=== PATIENT | female | born 1995 | race American Indian/Alaskan Native ===

== ENCOUNTER 2018-04-14 23:09 | Emergency (ER) | payer SELFPAY ==
[2018-04-14 23:20] VITALS: BP 138/74
[2018-04-14] MEDS ORDERED: NACL 0.9% 1000 ML 1,000 ML IV ONE (23:22)
[2018-04-14 23:57] LABS: Basophils % (Auto) 0.5 % (0.0-1.8); Eosinophils # (Auto) 0.1 K/mm3 (0.0-0.4); Eosinophils % (Auto) 0.8 % (0.0-4.3); Hematocrit 39.3 % (30.3-42.9); Hemoglobin 13.4 gm/dl (10.1-14.3); Lymphocytes # (Auto) 3.3 K/mm3 (1.2-5.4); Lymphocytes % (Auto) 49.5 % (13.4-35.0); Mean Corpuscular HGB Conc 34 % (30-34); Mean Corpuscular Hemoglobin 31 pg (28-32); Mean Corpuscular Volume 90 fl (79-97); Monocytes # (Auto) 0.5 K/mm3 (0.0-0.8); Monocytes % (Auto) 7.7 % (0.0-7.3); Platelet Count 263 K/mm3 (140-440); Red Blood Count 4.36 M/mm3 (3.65-5.03); Red Cell Distribution Width 13.2 % (13.2-15.2)
[2018-04-15 00:11] LABS: Alanine Aminotransferase 5 units/L (7-56); Albumin 4.9 g/dL (3.9-5); BUN/Creatinine Ratio 15; Blood Urea Nitrogen 12 mg/dL (7-17); Calcium 9.8 mg/dL (8.4-10.2); Hemolysis Index 5
[2018-04-15 02:20] LABS: Bacteria,Urine 1+ /HPF (Negative); Bilirubin,Urine NEG (Negative); Blood,Urine NEG (Negative); Color,Urine Yellow (Yellow); Mucus,Urine FEW /HPF; Protein,Urine <15 mg/dL mg/dL (Negative)
== END 2018-04-15 01:50 | disposition left against medical advice (07) ==
LOC: ED 23:09
DX: R10.9 Unspecified abdominal pain (principal); Z53.21 Procedure and treatment not carried out due to patient leaving prior to being seen by health care provider
CPT/HCPCS: 36415; 80053; 81001; 85025

== ENCOUNTER 2019-12-16 10:29 | Inpatient (IN) | payer MEDICAID, OTHER ==
[2019-12-16] MEDS ORDERED: LACTATED RINGERS 500 ML IV ONE ×2 (11:32→21:00)
[2019-12-16] MEDS ORDERED: ACETAMINOPHEN 500 MG TAB PO ONE (11:33)
[2019-12-16 12:10] LABS: Bacteria,Urine 2+ /HPF (Negative); Bilirubin,Urine NEG (Negative); Blood,Urine NEG (Negative); Color,Urine Amber (Yellow); Mucus,Urine FEW /HPF
[2019-12-16 12:11] LABS: WBC,Urine > 182.0 /HPF (0.0-6.0)
--- NOTE | 2019-12-16 12:54 | XRay Report ---
CHEST 1 VIEW INDICATION: 28 wks, fever, body aches,. COMPARISON: None. FINDINGS: Support devices: None. Heart: Within normal limits. Lungs/Pleura: No acute air space or interstitial disease. Additional findings: None. IMPRESSION: No acute abnormality. Signer Name: Srinivas Hunter MD Signed: 12/16/2019 12:50 PM Workstation Name: [id number]
[2019-12-16 13:17] LABS: Hematocrit 28.8 % (30.3-42.9); Hemoglobin 9.7 gm/dl (10.1-14.3); Mean Corpuscular HGB Conc 34 % (30-34); Mean Corpuscular Volume 92 fl (79-97); Platelet Count 214 K/mm3 (140-440); Red Blood Count 3.14 M/mm3 (3.65-5.03); Red Cell Distribution Width 13.6 % (13.2-15.2)
[2019-12-16 14:08] LABS: C-Reactive Protein 7.1 mg/dL (0.00-1.30)
[2019-12-16 14:09] LABS: Albumin 3.6 g/dL (3.9-5); BUN/Creatinine Ratio 10; Blood Urea Nitrogen 4 mg/dL (7-17); Calcium 9.2 mg/dL (8.4-10.2); Hemolysis Index 4
[2019-12-16 14:10] LABS: Alanine Aminotransferase < 5 units/L (7-56)
[2019-12-16] MEDS ORDERED: LACTATED RINGERS 1,000 ML ONE (15:05)
[2019-12-16] MEDS ORDERED: DOCUSATE SODIUM 100 MG CAP PO PRN (16:17)
[2019-12-16] MEDS ORDERED: SIMETHICONE 80 MG CHEW TAB PO PRN (16:17)
[2019-12-16] MEDS ORDERED: SODIUM CHLORIDE NASAL SPRAY 44ML NS PRN (16:17)
[2019-12-16] MEDS ORDERED: MAGNESIUM HYDROXIDE (MOM) ORAL LIQD UDC PO PRN (16:17)
--- NOTE | 2019-12-16 16:17 | History and Physical Report ---
History of Present Illness Date of examination: 12/16/19 Date of admission: t Chief complaint: fever, back pain History of present illness: Pt is a 24 year old -Maldivian female primigravida JAZ 03/10/20 at 27w6d who presents with fever of 102 since earlier today, back pain and body aches. She denies cough, shortness of breath or chest pain. She does report lower abdominal cramping. She reports movement, and denies leakage of fluid or vaginal bleeding. She has had care at [facility] [employer] [facility] that has been complicated by UTI. Her GBS status is unknown. PUI?: No Past History Past Medical History: asthma Past Surgical History: breast surgery (cyst removal), other (knee surgery ) Family/Genetic History: none Social history: no significant social history - Obstetrical History Expected Date of Delivery: 03/10/20 Actual Gestation: 27 Week(s) 6 Day(s) : 1 Medications and Allergies Allergies Allergy/AdvReac Type Severity Reaction Status Date / Time acetaminophen [From Percocet] Allergy Intermediate Swelling Verified 04/14/18 23:21 oxycodone [From Percocet] Allergy Intermediate Swelling Verified 04/14/18 23:21 Review of Systems All systems: negative Constitutional: fever, no lethargy Cardiovascular: no chest pain Respiratory: no cough, no cough with sputum, no hemoptysis, no shortness of breath, no dyspnea on exertion Breasts: deferred Gastrointestinal: no nausea, no vomiting - Vital Signs Vital signs: Vital Signs Pulse BP 146 H 117/62 12/16/19 10:46 12/16/19 10:46 Temp Pulse Resp BP Pulse Ox 98.4 F 131 H 20 119/76 100 12/16/19 14:45 12/16/19 15:33 12/16/19 14:45 12/16/19 15:09 12/16/19 15:33 - Physical Exam Abdomen: Positive: soft (gravid ), other (Low back tenderness (center)) Uterus: Positive: enlarged (gravid) Extremities: Positive: normal - Obstetrical FHR: category 2 Uterine Contraction Monitor Mode: External Uterine Contraction Pattern: Irregular Uterine Tone Measurement Phase: Resting Uterine Contraction Intensity: Mild Results Result Diagrams: 12/16/19 13:00 12/16/19 13:00 Abnormal lab results 12/16/19 12/16/19 12/16/19 Range/Units 11:32 13:00 13:00 WBC 14.1 H (4.5-11.0) K/mm3 RBC 3.14 L (3.65-5.03) M/mm3 Hgb 9.7 L (10.1-14.3) gm/dl Hct 28.8 L (30.3-42.9) % D-Dimer (0-234) ng/mlDDU Sodium 133 L (137-145) mmol/L Carbon Dioxide 16 L (22-30) mmol/L BUN 4 L (7-17) mg/dL Creatinine 0.4 L (0.7-1.2) mg/dL Glucose 113 H (65-100) mg/dL ALT < 5 L (7-56) units/L C-Reactive Protein (0.00-1.30) mg/dL Albumin 3.6 L (3.9-5) g/dL Urine WBC (Auto) > 182.0 H (0.0-6.0) /HPF U Epithel Cells (Auto) 29.0 H (0-13.0) /HPF 12/16/19 12/16/19 Range/Units 13:00 13:00 WBC (4.5-11.0) K/mm3 RBC (3.65-5.03) M/mm3 Hgb (10.1-14.3) gm/dl Hct (30.3-42.9) % D-Dimer 881.69 H (0-234) ng/mlDDU Sodium (137-145) mmol/L Carbon Dioxide (22-30) mmol/L BUN (7-17) mg/dL Creatinine (0.7-1.2) mg/dL Glucose (65-100) mg/dL ALT (7-56) units/L C-Reactive Protein 7.10 H (0.00-1.30) mg/dL Albumin (3.9-5) g/dL Urine WBC (Auto) (0.0-6.0) /HPF U Epithel Cells (Auto) (0-13.0) /HPF All other labs normal. Assessment and Plan A: IUP at 27w6d Fever, Leukocytosis, and Urinalysis with nitrites, leukesterase, and WBCs consistent with pyelonephritis Asthma P: Admit to antepartum service IV Rocephin 2g IV daily Urine culture Closely monitor clinical status
[2019-12-16] MEDS: LACTATED RINGERS 1,000 ML IV SCH (17:21)
[2019-12-16] MEDS: cefTRIAXone/NS 2 GM/100 ML 2 GM/100 ML BAG IV SCH (17:22)
[2019-12-16] MEDS: ACETAMINOPHEN 325 MG TAB PO PRN ×2 (18:51→23:38)
[2019-12-16] MEDS: ONDANSETRON 4 MG/2 ML INJ IV PRN (18:57)
[2019-12-17] MEDS: ONDANSETRON 4 MG/2 ML INJ IV PRN (02:54)
[2019-12-17] MEDS: ACETAMINOPHEN 325 MG TAB PO PRN ×4 (03:40→23:10)
[2019-12-17] MEDS: LACTATED RINGERS 1,000 ML IV SCH ×2 (10:38→23:10)
[2019-12-17] MEDS: PRENATAL VIT27-FE FUMARATE-FOLIC ACID VIT TAB PO SCH (10:39)
--- NOTE | 2019-12-17 14:13 | Progress Note ---
Assessment and Plan A: IUP at 28w0d Fever, Leukocytosis, and Urinalysis with nitrites, leukesterase, and WBCs consistent with pyelonephritis; on Rocephin 2g IV daily Asthma P: Continue IV antibiotics Per pt request discharge this evening after next dose of antibiotics. Follow up at [facility] scheduled for next Thu12/21/19 Subjective - Subjective Date of service: 12/17/19 Principal diagnosis: IUP at 28 wks, Pyelonephritis Interval history: Pt feels well and is anxious to go home. She has not had any fever since admission. She has no back pain presently. Patient reports: movement normal, no new complaints, no loss of fluid, no vaginal bleeding, no contractions Objective - Vital Signs Vital Signs: Vital Signs - 12hr 12/17/19 12/17/19 12/17/19 02:41 02:42 06:24 Temperature 98.2 F Pulse Rate 136 H 133 H 109 H Respiratory Rate Blood Pressure 100/52 110/55 Blood Pressure [Left] O2 Sat by Pulse 100 99 Oximetry 12/17/19 12/17/19 12/17/19 06:35 08:18 08:20 Temperature 98.1 F 98.0 F Pulse Rate 112 H Respiratory 20 Rate Blood Pressure 101/57 Blood Pressure [Left] O2 Sat by Pulse 100 Oximetry 12/17/19 12/17/19 12:07 12:44 Temperature 98.3 F Pulse Rate 115 H 118 H Respiratory 20 Rate Blood Pressure 106/58 Blood Pressure 106/58 [Left] O2 Sat by Pulse 100 98 Oximetry - Exam Breasts: deferred Abdomen: Present: soft (gravid ) FHR: auscultation normal Uterine Contraction Monitor Mode: External Uterine Contraction Pattern: Irregular Uterine Tone Measurement Phase: Resting Extremities: normal - Labs Labs: Abnormal Labs 12/16/19 12/16/19 12/16/19 11:32 13:00 13:00 WBC 14.1 H RBC 3.14 L Hgb 9.7 L Hct 28.8 L D-Dimer Sodium 133 L Carbon Dioxide 16 L BUN 4 L Creatinine 0.4 L Glucose 113 H ALT < 5 L C-Reactive Protein Albumin 3.6 L Urine WBC (Auto) > 182.0 H U Epithel Cells (Auto) 29.0 H 12/16/19 12/16/19 13:00 13:00 WBC RBC Hgb Hct D-Dimer 881.69 H Sodium Carbon Dioxide BUN Creatinine Glucose ALT C-Reactive Protein 7.10 H Albumin Urine WBC (Auto) U Epithel Cells (Auto) Laboratory Results - last 24 hr 12/16/19 13:00 Influenza A (Rapid) Negative Influenza A (RT-PCR) Negative Influenza B (Rapid) Negative Influenza B (RT-PCR) Negative - Results US- obstetric: pending
[2019-12-17] MEDS: cefTRIAXone/NS 2 GM/100 ML 2 GM/100 ML BAG IV SCH (16:59)
--- NOTE | 2019-12-17 17:05 | Ultrasound Report ---
OB ultrasound for biophysical profile FINDINGS: breathing movement, spontaneous motion, tone and qualitative BOOGIE all score 2/2 for a total score of 8/8. BOOGIE is 15.8 cm with the fetus in vertex presentation and placenta anterior. heart rate is 138 bpm. No definite abnormality. Signer Name: Franko Ennis MD Signed: 12/17/2019 5:00 PM Workstation Name: [id number]
--- NOTE | 2019-12-17 18:53 | Event Note ---
Date: 12/17/19 Called by RN secondary to patient temperature 102. Patient feels ill, and began having chills. Blood cultures x [address] Harris from Infectious Disease consulted, given clinical scenario. He has recommended that the patient be made a PUI. Precautions instituted. COVID 19 test ordered. Per lab, it is a send out test to [facility] that is usually resulted in 24 hours. Continue to monitor clinical status.
[2019-12-17] MEDS ORDERED: LEVALBUTEROL 0.63 MG/3 ML NEBU IH ONE (19:23)
[2019-12-17 20:26] LABS: Basophils % (Auto) 0.1 % (0.0-1.8); Hematocrit 25.7 % (30.3-42.9); Hemoglobin 8.7 gm/dl (10.1-14.3); Lymphocytes # (Auto) 1.1 K/mm3 (1.2-5.4); Lymphocytes % (Auto) 5.8 % (13.4-35.0); Mean Corpuscular HGB Conc 34 % (30-34); Mean Corpuscular Volume 92 fl (79-97); Monocytes # (Auto) 1.7 K/mm3 (0.0-0.8); Monocytes % (Auto) 9.3 % (0.0-7.3); Platelet Count 188 K/mm3 (140-440); Red Blood Count 2.81 M/mm3 (3.65-5.03); Red Cell Distribution Width 13.6 % (13.2-15.2)
--- NOTE | 2019-12-17 20:47 | XRay Report ---
CHEST 1 VIEW INDICATION / CLINICAL INFORMATION: New decrease in oxygen saturaton, UTI, fever. COMPARISON: 12/16/2019 FINDINGS: SUPPORT DEVICES: None. HEART / MEDIASTINUM: No significant abnormality. LUNGS / PLEURA: There is developing bilateral lung consolidation in the mid and lower lung zones not seen previously. The upper lungs are clear. No edema or effusions. No pneumothorax. ADDITIONAL FINDINGS: No significant additional findings. IMPRESSION: 1 Developing basilar pneumonia. Signer Name: Franko Ennis MD Signed: 12/17/2019 8:42 PM Workstation Name: [id number]
[2019-12-18] MEDS: LACTATED RINGERS 1,000 ML IV SCH (06:26)
[2019-12-18] MEDS: PRENATAL VIT27-FE FUMARATE-FOLIC ACID VIT TAB PO SCH (11:00)
--- NOTE | 2019-12-18 11:22 | Progress Note ---
Assessment and Plan A: IUP at 28w1d Fever, Leukocytosis, and Urinalysis with nitrites, leukesterase, and WBCs consistent with pyelonephritis; on Rocephin 2g IV daily PUI for Covid 19 after sudden onset of desaturation, chest pain and change in mental status on 12/17/19; test results pending. Results anticipated on 12/19/19 evening New finding of evolving bilateral pneumonia Asthma P: Continue IV antibiotics Begin Azithromycin for presumed pneumonia Follow up urine culture for sensitivities Subjective - Subjective Date of service: 12/18/19 Principal diagnosis: IUP at 28 wks, Suspected Pyelonephritis, PUI for Covid 19 Interval history: Overnight, pt felt well and denies fever or chills. She reports good movement. Covid-19 test swab collected and is pending. Blood cultures x 2 and urine cultures pending. Urine culture growing gram negative rods. Pt c.o painful contractions this morning. Patient reports: new complaints (per HPI ), movement normal, no loss of fluid, no vaginal bleeding Objective - Vital Signs Vital Signs: Vital Signs - 12hr 12/17/19 12/17/19 12/17/19 23:17 23:22 23:27 Temperature Pulse Rate 132 H 135 H 132 H Respiratory Rate Blood Pressure O2 Sat by Pulse 100 100 100 Oximetry 12/17/19 12/17/19 12/17/19 23:29 23:32 23:36 Temperature Pulse Rate 138 H 135 H 133 H Respiratory Rate Blood Pressure O2 Sat by Pulse 87 98 89 Oximetry 12/17/19 12/17/19 12/17/19 23:37 23:42 23:47 Temperature Pulse Rate 138 H 133 H 137 H Respiratory Rate Blood Pressure O2 Sat by Pulse 98 99 100 Oximetry 12/17/19 12/17/19 12/18/19 23:52 23:57 00:02 Temperature Pulse Rate 132 H 132 H 128 H Respiratory Rate Blood Pressure O2 Sat by Pulse 94 97 96 Oximetry 12/18/19 12/18/19 12/18/19 00:17 01:26 01:31 Temperature 98.6 F Pulse Rate 133 H 122 H 121 H Respiratory 18 Rate Blood Pressure 119/58 O2 Sat by Pulse 98 98 Oximetry 12/18/19 12/18/19 12/18/19 01:36 01:41 01:46 Temperature Pulse Rate 117 H 128 H 114 H Respiratory Rate Blood Pressure O2 Sat by Pulse 99 96 97 Oximetry 12/18/19 12/18/19 12/18/19 01:51 01:56 02:01 Temperature Pulse Rate 112 H 117 H 119 H Respiratory Rate Blood Pressure O2 Sat by Pulse 97 98 98 Oximetry 12/18/19 12/18/19 12/18/19 02:06 02:11 02:16 Temperature Pulse Rate 110 H 111 H 108 H Respiratory Rate Blood Pressure O2 Sat by Pulse 97 99 97 Oximetry 12/18/19 12/18/19 12/18/19 02:21 02:26 02:31 Temperature Pulse Rate 109 H 107 H 115 H Respiratory Rate Blood Pressure O2 Sat by Pulse 97 97 97 Oximetry 12/18/19 12/18/19 12/18/19 02:36 02:41 02:46 Temperature Pulse Rate 110 H 107 H 106 H Respiratory Rate Blood Pressure O2 Sat by Pulse 96 96 95 Oximetry 12/18/19 12/18/19 12/18/19 02:51 02:56 03:01 Temperature Pulse Rate 106 H 105 H 102 H Respiratory Rate Blood Pressure O2 Sat by Pulse 96 96 96 Oximetry 12/18/19 12/18/19 12/18/19 03:06 03:11 03:16 Temperature Pulse Rate 103 H 104 H 104 H Respiratory Rate Blood Pressure O2 Sat by Pulse 96 96 96 Oximetry 12/18/19 12/18/19 12/18/19 03:21 03:26 03:31 Temperature Pulse Rate 104 H 102 H 107 H Respiratory Rate Blood Pressure O2 Sat by Pulse 96 96 95 Oximetry 12/18/19 12/18/19 12/18/19 03:36 03:41 03:46 Temperature Pulse Rate 103 H 106 H 108 H Respiratory Rate Blood Pressure O2 Sat by Pulse 96 96 96 Oximetry 12/18/19 12/18/19 12/18/19 03:51 03:56 04:00 Temperature 97.4 F L Pulse Rate 105 H 106 H Respiratory 18 Rate Blood Pressure O2 Sat by Pulse 95 95 Oximetry 12/18/19 12/18/19 12/18/19 04:01 04:02 04:06 Temperature Pulse Rate 109 H 109 H 104 H Respiratory Rate Blood Pressure O2 Sat by Pulse 95 94 95 Oximetry 12/18/19 12/18/19 12/18/19 04:08 04:11 04:14 Temperature Pulse Rate 115 H 108 H 109 H Respiratory Rate Blood Pressure O2 Sat by Pulse 92 95 93 Oximetry 12/18/19 12/18/19 12/18/19 04:16 04:19 04:21 Temperature Pulse Rate 118 H 115 H 111 H Respiratory Rate Blood Pressure O2 Sat by Pulse 100 94 96 Oximetry 12/18/19 12/18/19 12/18/19 04:34 04:38 04:39 Temperature Pulse Rate 113 H 112 H 111 H Respiratory Rate Blood Pressure 118/63 O2 Sat by Pulse 94 98 Oximetry 12/18/19 12/18/19 12/18/19 04:44 04:52 04:53 Temperature Pulse Rate 111 H 120 H 117 H Respiratory Rate Blood Pressure O2 Sat by Pulse 97 78 L 85 Oximetry 12/18/19 12/18/19 12/18/19 04:58 04:59 05:03 Temperature Pulse Rate 111 H 111 H 107 H Respiratory Rate Blood Pressure O2 Sat by Pulse 99 90 99 Oximetry 12/18/19 12/18/19 12/18/19 05:07 05:08 05:13 Temperature Pulse Rate 112 H 111 H 116 H Respiratory Rate Blood Pressure O2 Sat by Pulse 91 98 100 Oximetry 12/18/19 12/18/19 12/18/19 05:18 05:23 05:27 Temperature Pulse Rate 114 H 112 H 118 H Respiratory Rate Blood Pressure O2 Sat by Pulse 98 98 91 Oximetry 12/18/19 12/18/19 12/18/19 05:28 05:33 05:38 Temperature Pulse Rate 116 H 119 H 116 H Respiratory Rate Blood Pressure O2 Sat by Pulse 98 99 98 Oximetry 12/18/19 12/18/19 12/18/19 05:43 05:47 05:48 Temperature Pulse Rate 119 H 112 H 112 H Respiratory Rate Blood Pressure O2 Sat by Pulse 97 86 86 Oximetry 12/18/19 12/18/19 12/18/19 05:53 05:58 06:03 Temperature Pulse Rate 115 H 117 H 113 H Respiratory Rate Blood Pressure O2 Sat by Pulse 98 97 96 Oximetry 12/18/19 12/18/19 12/18/19 06:04 06:08 06:13 Temperature Pulse Rate 124 H 113 H 111 H Respiratory Rate Blood Pressure O2 Sat by Pulse 91 97 98 Oximetry 12/18/19 12/18/19 12/18/19 06:14 06:18 07:10 Temperature Pulse Rate 123 H 116 H 127 H Respiratory Rate Blood Pressure O2 Sat by Pulse 88 100 97 Oximetry 12/18/19 12/18/19 12/18/19 07:14 07:15 07:19 Temperature Pulse Rate 121 H 121 H 122 H Respiratory Rate Blood Pressure O2 Sat by Pulse 89 100 87 Oximetry 12/18/19 12/18/19 12/18/19 07:20 07:25 07:30 Temperature Pulse Rate 124 H 125 H 121 H Respiratory Rate Blood Pressure O2 Sat by Pulse 84 94 98 Oximetry 12/18/19 12/18/19 12/18/19 07:34 07:35 07:40 Temperature Pulse Rate 124 H 122 H 120 H Respiratory Rate Blood Pressure O2 Sat by Pulse 92 89 98 Oximetry 12/18/19 12/18/19 12/18/19 07:45 07:50 07:55 Temperature Pulse Rate 123 H 129 H 122 H Respiratory Rate Blood Pressure O2 Sat by Pulse 96 94 99 Oximetry 12/18/19 12/18/19 12/18/19 08:00 08:02 08:05 Temperature Pulse Rate 125 H 125 H 128 H Respiratory Rate Blood Pressure O2 Sat by Pulse 99 88 97 Oximetry 12/18/19 12/18/19 12/18/19 08:10 08:14 08:15 Temperature 98.4 F Pulse Rate 131 H 125 H Respiratory 20 Rate Blood Pressure O2 Sat by Pulse 92 97 Oximetry 12/18/19 12/18/19 12/18/19 08:18 08:20 08:25 Temperature Pulse Rate 126 H 129 H 129 H Respiratory Rate Blood Pressure O2 Sat by Pulse 85 96 99 Oximetry 12/18/19 12/18/19 12/18/19 08:30 08:35 08:40 Temperature Pulse Rate 126 H 130 H 130 H Respiratory Rate Blood Pressure O2 Sat by Pulse 99 90 83 L Oximetry 12/18/19 12/18/19 12/18/19 08:43 08:45 08:50 Temperature Pulse Rate 129 H 130 H 132 H Respiratory Rate Blood Pressure O2 Sat by Pulse 85 100 91 Oximetry 12/18/19 12/18/19 12/18/19 08:55 08:56 10:06 Temperature 98.6 F Pulse Rate 130 H 132 H Respiratory 18 Rate Blood Pressure O2 Sat by Pulse 95 94 Oximetry 12/18/19 12/18/19 12/18/19 10:32 10:34 10:35 Temperature 98.6 F Pulse Rate 129 H Respiratory Rate Blood Pressure O2 Sat by Pulse 83 L 94 Oximetry 12/18/19 12/18/19 12/18/19 10:40 10:45 10:48 Temperature Pulse Rate 135 H 138 H 129 H Respiratory Rate Blood Pressure O2 Sat by Pulse 86 99 93 Oximetry 12/18/19 12/18/19 12/18/19 10:50 10:54 10:55 Temperature Pulse Rate 131 H 132 H 133 H Respiratory Rate Blood Pressure O2 Sat by Pulse 100 93 95 Oximetry 12/18/19 12/18/19 11:00 11:03 Temperature Pulse Rate 131 H 128 H Respiratory Rate Blood Pressure O2 Sat by Pulse 100 91 Oximetry - Exam Breasts: deferred Lungs: Clear to auscultation, Other (decreased air movement ) Abdomen: Present: soft (obese ) Uterus: Present: normal (obese ) FHR: auscultation normal Uterine Contraction Monitor Mode: External Cervical Dilatation: 0 Uterine Contraction Pattern: Irregular Uterine Tone Measurement Phase: Resting - Labs Labs: Abnormal Labs 12/16/19 12/16/19 12/16/19 11:32 13:00 13:00 WBC 14.1 H RBC 3.14 L Hgb 9.7 L Hct 28.8 L Lymph % (Auto) [place] % (Auto) Lymph # [place] # Seg Neutrophils % Seg Neutrophils # D-Dimer Sodium 133 L Carbon Dioxide 16 L BUN 4 L Creatinine 0.4 L Glucose 113 H ALT < 5 L C-Reactive Protein Albumin 3.6 L Urine WBC (Auto) > 182.0 H U Epithel Cells (Auto) 29.0 H 12/16/19 12/16/19 12/17/19 13:00 13:00 20:12 WBC 18.5 H RBC 2.81 L Hgb 8.7 L Hct 25.7 L Lymph % (Auto) 5.8 L [place] % (Auto) 9.3 H Lymph # 1.1 L [place] # 1.7 H Seg Neutrophils % 84.8 H Seg Neutrophils # 15.7 H D-Dimer 881.69 H Sodium Carbon Dioxide BUN Creatinine Glucose ALT C-Reactive Protein 7.10 H Albumin Urine WBC (Auto) U Epithel Cells (Auto) Laboratory Results - last 24 hr 12/17/19 12/17/19 17:08 20:12 WBC 18.5 H RBC 2.81 L Hgb 8.7 L Hct 25.7 L MCV 92 MCH 31 MCHC 34 RDW 13.6 Plt Count 188 Lymph % (Auto) 5.8 L [place] % (Auto) 9.3 H Eos % (Auto) 0.0 Baso % (Auto) 0.1 Lymph # 1.1 L [place] # 1.7 H Eos # 0.0 Baso # 0.0 Seg Neutrophils % 84.8 H Seg Neutrophils # 15.7 H TSH 1.160
--- NOTE | 2019-12-18 14:55 | Consultation ---
History of Present Illness - Reason for Consult Consult date: 12/18/19 COVID-19 PUI?: Yes COVID19: Pending - History of Present Illness sad 24 yo F PMHx asthma who presented with fevers, back pain, and body aches. There was associated abdominal cramping as well. She has previously had a UTI during her current , and her GBS status was unknown on admission. He symptoms were initially attributed to a potential pyelonephritis as she lacked any respiratory symptoms. However, during her admission she became somewhat hypoxic, and as such she was made into a PUI after a discussion between myself and Dr. Mason. No other concerns at this time. Febrile to 102.7 with a white count of now of 18. She is currently receiving ceftriaxone and azithromycin. Urine cultures with E coli, palm-sensitive. Imaging personally reviewed: CXR: developing basilar pneumonia. Review of Systems: Bold if positive, otherwise negative General: fevers, chills, rigors HEENT: visual disturbance, diplopia, eye pain Respiratory: cough, sputum, hemoptysis, shortness of breath Cardiovascular: chest pain, syncope Gastrointestinal: nausea, vomiting, diarrhea, abdominal pain Genitourinary: dysuria, hematuria, flank pain Musculoskeletal: neck pain, back pain, joint pain, edema Neurologic: headaches, seizures Hematologic: easy bruising or bleeding Endocrine: night sweats, acute weight loss Skin: rash, jaundice, redness Psychiatric: suicidal, homicidal ideation Past History Past Medical History: No medical history Past Surgical History: No surgical history Social history: no significant social history Family history: no significant family history Medications and Allergies Allergies Allergy/AdvReac Type Severity Reaction Status Date / Time acetaminophen [From Percocet] Allergy Intermediate Swelling Verified 04/14/18 23:21 oxycodone [From Percocet] Allergy Intermediate Swelling Verified 04/14/18 23:21 Home Medications Medication Instructions Recorded Confirmed Last Taken Type No Known Home Medications [No 12/18/19 12/18/19 Unknown History Reported Home Medications] Formula-Dha Softgel 1 tab PO DAILY 12/18/19 12/18/19 12/17/19 History Active Meds: Active Medications Acetaminophen (Tylenol) 650 mg PO Q4H PRN PRN Reason: Pain MILD(1-3)/Fever >100.5/BRADEN Last Admin: 12/17/19 23:10 Dose: 650 mg Documented by: Docusate Sodium (Colace) 100 mg PO Q12H PRN PRN Reason: Constipation Lactated Ringer's (Lactated Ringers) 1,000 mls @ 125 mls/hr IV DIRECT ANGIE Last Admin: 12/18/19 06:26 Dose: 125 mls/hr Documented by: Ceftriaxone Sodium (Rocephin/Ns 2 Gm/100 Ml) 2 gm in 100 mls @ 200 mls/hr IV Q24HR ANGIE; Protocol Last Admin: 12/17/19 16:59 Dose: 200 mls/hr Documented by: Azithromycin 500 mg/ Sodium (Chloride) 250 mls @ 250 mls/hr IV Q24HR ANGIE; Jimenez col Magnesium Hydroxide (Milk Of Magnesia) 30 ml PO QHS PRN PRN Reason: Laxative Effect Last Admin: 12/17/19 02:54 Dose: 30 ml Documented by: Multivitamins/Iron/Calcium ( Vitamin) 1 each PO QDAY ANGIE Last Admin: 12/17/19 10:39 Dose: 1 each Documented by: Ondansetron HCl (Zofran) 4 mg IV Q6H PRN PRN Reason: Nausea And Vomiting Last Admin: 12/17/19 02:54 Dose: 4 mg Documented by: Simethicone (Mylicon) 80 mg PO Q6H PRN PRN Reason: Gas pain Last Admin: 12/17/19 02:54 Dose: 80 mg Documented by: Sodium Chloride (Deep Sea) 2 spray NS Q4H PRN PRN Reason: Congestion Physical Examination - Physical Exam Narrative exam: Physical Exam: Deferred due to PPE conservation strategy Please see TRAVELING REPAIR ACCOUNT[employer] note for updated exam. - Constitutional Vitals: Vital Signs Temp Pulse Resp BP Pulse Ox 98.6 F 116 H 18 118/63 97 12/18/19 10:32 12/18/19 14:51 12/18/19 10:06 12/18/19 04:34 12/18/19 14:51 Temperature -Last 24 Hours Temperature 98.6 F Temperature 98.6 F Temperature 98.4 F Temperature 97.4 F Temperature 98.6 F Temperature 100.0 F Temperature 102.5 F Temperature 102.7 F Temperature 98.2 F Results - Labs CBC & Chem 7: 12/17/19 20:12 12/16/19 13:00 Labs: Abnormal lab results 04/11/20 Range/Units 20:12 WBC 18.5 H (4.5-11.0) K/mm3 RBC 2.81 L (3.65-5.03) M/mm3 Hgb 8.7 L (10.1-14.3) gm/dl Hct 25.7 L (30.3-42.9) % Lymph % (Auto) 5.8 L (13.4-35.0) % [place] % (Auto) 9.3 H (0.0-7.3) % Lymph # 1.1 L (1.2-5.4) K/mm3 [place] # 1.7 H (0.0-0.8) K/mm3 Seg Neutrophils % 84.8 H (40.0-70.0) % Seg Neutrophils # 15.7 H (1.8-7.7) K/mm3 Assessment and Plan Cultures: Blood culture 12/17/2019 pending Urine culture12/16/2019 E coli palm sensitive A/P: 24 yo F PMHx asthma admitted with concern for pyelonephritis, n ow concern for COVID-19 #Probably pyelonephritis: given symptoms including flank pain and positive urine culture for E coli, recommend continuing treatment with ceftriaxone for now given developing pneumonia. #Pneumonia: continue empiric antibiotics for now pending COVID-19 test #COVID-19 rule out: pending test, given persistent fevers, and now tachycardia and hypoxia agree with testing. Continue isolation precautions for now. #Asthma: high risk for COVID complications if positive Recs: -Continue empiric azithromycin and ceftriaxone -Follow up blood cultures -Follow up COVID-testing Discussed with Dr. Mason. Thank you for the consult, we will continue to follow. John Harris MD [facility] M: [phone] O: [phone] F: [phone]
[2019-12-18] MEDS ORDERED: AZITHROMYCIN 500 MG in SODIUM CHLORIDE 0.9% 250ML 250 ML IV SCH (15:00)
[2019-12-18] MEDS ORDERED: AZITHROMYCIN 250 MG TAB PO SCH (15:00)
[2019-12-18] MEDS: AZITHROMYCIN 250 MG TAB PO SCH (17:46)
[2019-12-18] MEDS: ACETAMINOPHEN 325 MG TAB PO PRN (19:29)
[2019-12-19] MEDS: ACETAMINOPHEN 325 MG TAB PO PRN (02:04)
--- NOTE | 2019-12-19 07:48 | Progress Note ---
Assessment and Plan A: IUP at 28w2d Fever, Leukocytosis, and Urinalysis with nitrites, leukesterase, and WBCs consistent with pyelonephritis; on Rocephin 2g IV daily PUI for Covid 19 after sudden onset of desaturation, chest pain and change in mental status on 12/17/19; test results pending. Results anticipated on 12/19/19 evening New finding of evolving bilateral pneumonia Asthma P: Continue IV antibiotics Begin Azithromycin for presumed pneumonia Follow up urine culture for sensitivities Await results from covid Subjective - Subjective Date of service: 12/19/19 Principal diagnosis: IUP at 28 wks, Suspected Pyelonephritis, PUI for Covid 19 Patient reports: new complaints (per HPI ), movement normal, no loss of fluid, no vaginal bleeding Objective - Vital Signs Vital Signs: Vital Signs - 12hr 12/18/19 12/18/19 12/18/19 19:50 19:55 20:00 Temperature Pulse Rate 127 H 131 H 127 H Pulse Rate [ Bilateral] Respiratory Rate Respiratory Rate [Bilateral ] Blood Pressure Blood Pressure [Left] O2 Sat by Pulse 99 99 98 Oximetry 12/18/19 12/18/19 12/18/19 20:02 20:05 20:10 Temperature Pulse Rate 127 H 129 H 131 H Pulse Rate [ Bilateral] Respiratory Rate Respiratory Rate [Bilateral ] Blood Pressure 133/66 Blood Pressure [Left] O2 Sat by Pulse 98 98 Oximetry 12/18/19 12/18/19 12/18/19 20:15 20:42 20:43 Temperature Pulse Rate 39 L 132 H Pulse Rate [ Bilateral] Respiratory Rate Respiratory Rate [Bilateral ] Blood Pressure Blood Pressure [Left] O2 Sat by Pulse 64 L 93 98 Oximetry 12/18/19 12/18/19 12/18/19 20:48 20:53 20:58 Temperature Pulse Rate 123 H 121 H 120 H Pulse Rate [ Bilateral] Respiratory Rate Respiratory Rate [Bilateral ] Blood Pressure Blood Pressure [Left] O2 Sat by Pulse 98 98 98 Oximetry 12/18/19 12/18/19 12/18/19 21:03 21:08 21:13 Temperature Pulse Rate 120 H 127 H 121 H Pulse Rate [ Bilateral] Respiratory Rate Respiratory Rate [Bilateral ] Blood Pressure Blood Pressure [Left] O2 Sat by Pulse 98 97 97 Oximetry 12/18/19 12/18/19 12/18/19 21:15 21:18 21:21 Temperature Pulse Rate 120 H 56 L Pulse Rate [ 85 Bilateral] Respiratory Rate Respiratory 18 Rate [Bilateral ] Blood Pressure Blood Pressure [Left] O2 Sat by Pulse 97 77 L Oximetry 12/18/19 12/18/19 12/18/19 21:23 21:28 21:33 Temperature Pulse Rate 126 H 119 H 118 H Pulse Rate [ Bilateral] Respiratory Rate Respiratory Rate [Bilateral ] Blood Pressure Blood Pressure [Left] O2 Sat by Pulse 96 99 100 Oximetry 12/18/19 12/18/19 12/18/19 21:38 21:43 21:48 Temperature Pulse Rate 115 H 116 H 114 H Pulse Rate [ Bilateral] Respiratory Rate Respiratory Rate [Bilateral ] Blood Pressure Blood Pressure [Left] O2 Sat by Pulse 99 97 100 Oximetry 12/18/19 12/18/19 12/18/19 21:53 21:54 21:58 Temperature Pulse Rate 119 H 122 H 116 H Pulse Rate [ Bilateral] Respiratory Rate Respiratory Rate [Bilateral ] Blood Pressure Blood Pressure [Left] O2 Sat by Pulse 98 93 95 Oximetry 12/18/19 12/19/19 12/19/19 22:42 00:09 00:10 Temperature Pulse Rate 115 H 62 130 H Pulse Rate [ Bilateral] Respiratory Rate Respiratory Rate [Bilateral ] Blood Pressure 110/58 Blood Pressure [Left] O2 Sat by Pulse 99 70 L Oximetry 12/19/19 12/19/19 12/19/19 00:11 00:12 00:14 Temperature Pulse Rate 126 H 126 H 102 H Pulse Rate [ Bilateral] Respiratory 24 Rate Respiratory Rate [Bilateral ] Blood Pressure Blood Pressure 110/58 [Left] O2 Sat by Pulse 100 99 83 L Oximetry 12/19/19 12/19/19 12/19/19 01:56 01:57 02:01 Temperature 98.0 F Pulse Rate 123 H Pulse Rate [ Bilateral] Respiratory Rate Respiratory Rate [Bilateral ] Blood Pressure Blood Pressure [Left] O2 Sat by Pulse 75 L 97 97 Oximetry 12/19/19 12/19/19 12/19/19 02:02 04:01 07:41 Temperature 97.8 F Pulse Rate 114 H Pulse Rate [ Bilateral] Respiratory Rate Respiratory Rate [Bilateral ] Blood Pressure Blood Pressure [Left] O2 Sat by Pulse 97 54 L Oximetry 12/19/19 12/19/19 07:42 07:44 Temperature Pulse Rate 116 H 115 H Pulse Rate [ Bilateral] Respiratory Rate Respiratory Rate [Bilateral ] Blood Pressure 112/66 Blood Pressure [Left] O2 Sat by Pulse 82 L Oximetry - Exam Breasts: normal Cardiovascular: Regular rate, Normal S1 Lungs: Clear to auscultation, Normal air movement Abdomen: Present: normal appearance, soft, normal bowel sounds. Absent: distention, tenderness, guarding Vulva: both: normal Uterus: Present: normal, firm, fundal height below umbilicus. Absent: bogginess, tenderness FHR: category 1 - Labs Labs: Abnormal Labs 12/16/19 12/16/19 12/16/19 11:32 13:00 13:00 WBC 14.1 H RBC 3.14 L Hgb 9.7 L Hct 28.8 L Lymph % (Auto) [place] % (Auto) Lymph # [place] # Seg Neutrophils % Seg Neutrophils # D-Dimer Sodium 133 L Carbon Dioxide 16 L BUN 4 L Creatinine 0.4 L Glucose 113 H ALT < 5 L C-Reactive Protein Albumin 3.6 L Urine WBC (Auto) > 182.0 H U Epithel Cells (Auto) 29.0 H 12/16/19 12/16/19 12/17/19 13:00 13:00 20:12 WBC 18.5 H RBC 2.81 L Hgb 8.7 L Hct 25.7 L Lymph % (Auto) 5.8 L [place] % (Auto) 9.3 H Lymph # 1.1 L [place] # 1.7 H Seg Neutrophils % 84.8 H Seg Neutrophils # 15.7 H D-Dimer 881.69 H Sodium Carbon Dioxide BUN Creatinine Glucose ALT C-Reactive Protein 7.10 H Albumin Urine WBC (Auto) U Epithel Cells (Auto)
[2019-12-19] MEDS: cefTRIAXone/NS 2 GM/100 ML 2 GM/100 ML BAG IV SCH (09:46)
[2019-12-19] MEDS: PRENATAL VIT27-FE FUMARATE-FOLIC ACID VIT TAB PO SCH (09:47)
[2019-12-19] MEDS: AZITHROMYCIN 250 MG TAB PO SCH (09:47)
--- NOTE | 2019-12-19 13:48 | Progress Note ---
Assessment and Plan Cultures: Blood culture 12/17/2019 No growth Urine culture 12/16/2019 E coli palm sensitive A/P: 24 yo F PMHx asthma admitted with concern for pyelonephritis, now concern for COVID-19: #Probably pyelonephritis: given symptoms including flank pain and positive urine culture for E coli, recommend continuing treatment with ceftriaxone for now given developing pneumonia. #Pneumonia: continue empiric antibiotics for now pending COVID-19 test. #COVID-19 rule out: pending test, given persistent fevers, and now tachycardia and hypoxia agree with testing. Continue isolation precautions for now. #Asthma: high risk for COVID complications if positive # status: 28 weeks. Recs: -Continue empiric azithromycin and ceftriaxone -Follow up COVID testing Phill Espitia MD, FACP [facility] ([facility]) C: [phone] O: [phone] F: [phone] Subjective Date of service: 12/19/19 Principal diagnosis: IUP at 28 wks, Suspected Pyelonephritis, PUI for Covid 19 Interval history: No fever. Still tachycardic. COVID test pending. Influenza negative. Urine culture with E.coli. PUI?: Yes COVID19: Pending Objective - Exam Narrative Exam: Physical Exam (reviewed in chart due to PPE conservation) Constitutional: limited due to PPE conservation strategy Head, Ears, Nose: limited due to PPE conservation strategy Eyes: limited due to PPE conservation strategy Neck: limited due to PPE conservation strategy Oral: limited due to PPE conservation strategy Cardiovascular: limited due to PPE conservation strategy Respiratory: limited due to PPE conservation strategy GI: limited due to PPE conservation strategy Musculoskeletal: limited due to PPE conservation strategy Skin: limited due to PPE conservation strategy Hem/Lymphatic: limited due to PPE conservation strategy Psych: limited due to PPE conservation strategy Neurological: limited due to PPE conservation strategy - Constitutional Vitals: Vital Signs Temp Pulse Resp BP Pulse Ox 98.5 F 114 H 20 120/62 99 12/19/19 13:12 12/19/19 13:46 12/19/19 13:12 12/19/19 13:07 12/19/19 13:46 Temperature -Last 24 Hours Temperature 98.5 F Temperature 98.4 F Temperature 98.2 F Temperature 98.3 F Temperature 97.8 F Temperature 98.0 F Temperature 99.2 F Temperature 98.9 F - Labs CBC & Chem 7: 12/17/19 20:12 12/16/19 13:00
--- NOTE | 2019-12-19 15:41 | Event Note ---
Date: 12/19/19 Got notification from lab that COVID-19 test is negative.
[2019-12-20 06:14] LABS: Hematocrit 25.3 % (30.3-42.9); Hemoglobin 8.6 gm/dl (10.1-14.3); Mean Corpuscular HGB Conc 34 % (30-34); Mean Corpuscular Volume 92 fl (79-97); Platelet Count 262 K/mm3 (140-440); Red Blood Count 2.76 M/mm3 (3.65-5.03); Red Cell Distribution Width 13.9 % (13.2-15.2)
[2019-12-20 07:11] LABS: Total Cells Counted 100
[2019-12-20 07:13] LABS: Band Neutrophils # (Manual) 0.2 K/mm3; Basophils % (Manual) 0 % (0.0-1.8); Eosinophils % (Manual) 0 % (0.0-4.3)
[2019-12-20 07:14] LABS: Ovalocytes Rare; Platelet Estimate Consistent w Auto
[2019-12-20] MEDS: PRENATAL VIT27-FE FUMARATE-FOLIC ACID VIT TAB PO SCH ×2 (08:29→11:24)
[2019-12-20] MEDS: ACETAMINOPHEN 325 MG TAB PO PRN (08:30)
[2019-12-20] MEDS: AZITHROMYCIN 250 MG TAB PO SCH (10:33)
[2019-12-20] MEDS: cefTRIAXone/NS 2 GM/100 ML 2 GM/100 ML BAG IV SCH (11:23)
--- NOTE | 2019-12-20 13:20 | Progress Note ---
Assessment and Plan Cultures: Blood culture 12/17/2019 No growth Urine culture 12/16/2019 E coli palm sensitive A/P: 24 yo F PMHx asthma admitted with concern for pyelonephritis, now concern for COVID-19: #Probably pyelonephritis: given symptoms including flank pain and positive urine culture for E coli, recommend continuing treatment with ceftriaxone for now given developing pneumonia. #Pneumonia: already received a few days of Ceftriaxone and Azithromycin. #COVID-19 ruled out: test result negative #Asthma: high risk for COVID complications if positive # status: 28 weeks. Recs: -WBC normal, afebrile, not on oxygen. COVID test negative -already received adequate days of IV Ceftriaxone and Azithromycin -OK for discharge from ID standpoint on PO Keflex 500 mg BID till the rest of her as secondary prophylaxis for UTI/pyelonephritis Will sign off. Please call with questions. Phill Espitia MD, FACP [facility] ([facility]) C: [phone] O: [phone] F: [phone] Subjective Date of service: 12/20/19 Principal diagnosis: IUP at 28 wks, Suspected Pyelonephritis, PUI for Covid 19 Interval history: No fever. COVID test negative. No cough, not on oxygen. Feels well. PUI?: Yes COVID19: Negative Objective - Exam Narrative Exam: Physical Exam: Constitutional: Alert, cooperative. No acute distress Head, Ears, Nose: Normocephalic, atraumatic. External ears, nose normal Eyes: Conjunctivae/corneas clear. No icterus. No ptosis. Neck: Supple, no meningeal signs Cardiovascular: S1, S2 normal. Respiratory: Good air entry, clear to auscultation bilaterally GI: Soft, non-tender; bowel sounds normal. No peritoneal signs. Gravid uterus Musculoskeletal: No pedal edema, no cyanosis. Skin: No rash or abscess Hem/Lymphatic: No palpable cervical or supraclavicular nodes. No lymphangitis Psych: Mood ok. Affect normal Neurological: Awake, alert, oriented. No gross abnormality - Constitutional Vitals: Vital Signs Temp Pulse Resp BP Pulse Ox 98.1 F 109 H 22 104/51 98 12/20/19 10:27 12/20/19 13:12 12/20/19 10:27 12/20/19 11:27 12/20/19 13:12 Temperature -Last 24 Hours Temperature 98.1 F Temperature 98.8 F Temperature 98.2 F Temperature 98.6 F Temperature 98.4 F - Labs CBC & Chem 7: 12/20/19 05:54 12/16/19 13:00 Labs: Abnormal lab results 12/20/19 Range/Units 05:54 RBC 2.76 L (3.65-5.03) M/mm3 Hgb 8.6 L (10.1-14.3) gm/dl Hct 25.3 L (30.3-42.9) % Monocytes % (Manual) 12.0 H (0.0-7.3) % Monocytes # (Manual) 1.1 H (0.0-0.8) K/mm3
--- NOTE | 2019-12-20 13:42 | Progress Note ---
Assessment and Plan A: IUP at 28w3d Fever, Leukocytosis, and Urinalysis with nitrites, leukesterase, and WBCs consistent with pyelonephritis; on Rocephin 2g IV daily Neg for covid 19 pneumonia Asthma P: Continue IV antibiotics azithro for continue present mgt Subjective - Subjective Date of service: 12/20/19 Principal diagnosis: IUP at 28 wks, Suspected Pyelonephritis, PUI for Covid 19 Patient reports: new complaints (per HPI ), movement normal, no loss of fluid, no vaginal bleeding Objective - Vital Signs Vital Signs: Vital Signs - 12hr 12/20/19 12/20/19 12/20/19 01:42 01:47 01:52 Temperature Pulse Rate 118 H 128 H 115 H Respiratory Rate Blood Pressure Blood Pressure [Right] O2 Sat by Pulse 98 97 99 Oximetry 12/20/19 12/20/19 12/20/19 01:57 02:01 02:07 Temperature Pulse Rate 115 H 111 H 113 H Respiratory Rate Blood Pressure Blood Pressure [Right] O2 Sat by Pulse 98 98 97 Oximetry 12/20/19 12/20/19 12/20/19 02:12 02:17 02:22 Temperature Pulse Rate 112 H 111 H 114 H Respiratory Rate Blood Pressure Blood Pressure [Right] O2 Sat by Pulse 97 97 97 Oximetry 12/20/19 12/20/19 12/20/19 02:27 02:32 02:37 Temperature Pulse Rate 113 H 113 H 113 H Respiratory Rate Blood Pressure Blood Pressure [Right] O2 Sat by Pulse 97 97 96 Oximetry 12/20/19 12/20/19 12/20/19 02:42 02:47 02:52 Temperature Pulse Rate 110 H 112 H 117 H Respiratory Rate Blood Pressure Blood Pressure [Right] O2 Sat by Pulse 97 97 97 Oximetry 12/20/19 12/20/19 12/20/19 02:57 03:02 03:07 Temperature Pulse Rate 112 H 110 H 110 H Respiratory Rate Blood Pressure Blood Pressure [Right] O2 Sat by Pulse 97 97 97 Oximetry 12/20/19 12/20/19 12/20/19 03:12 03:17 03:22 Temperature Pulse Rate 109 H 111 H 109 H Respiratory Rate Blood Pressure Blood Pressure [Right] O2 Sat by Pulse 96 96 96 Oximetry 12/20/19 12/20/19 12/20/19 03:27 03:32 03:37 Temperature Pulse Rate 110 H 110 H 107 H Respiratory Rate Blood Pressure Blood Pressure [Right] O2 Sat by Pulse 96 97 97 Oximetry 12/20/19 12/20/19 12/20/19 03:42 03:47 03:52 Temperature Pulse Rate 111 H 110 H 109 H Respiratory Rate Blood Pressure Blood Pressure [Right] O2 Sat by Pulse 97 97 96 Oximetry 12/20/19 12/20/19 12/20/19 03:57 04:02 04:07 Temperature Pulse Rate 111 H 114 H 109 H Respiratory Rate Blood Pressure Blood Pressure [Right] O2 Sat by Pulse 98 97 97 Oximetry 12/20/19 12/20/19 12/20/19 04:12 04:17 04:22 Temperature Pulse Rate 107 H 107 H 107 H Respiratory Rate Blood Pressure Blood Pressure [Right] O2 Sat by Pulse 97 97 97 Oximetry 12/20/19 12/20/19 12/20/19 04:27 04:32 04:37 Temperature Pulse Rate 107 H 104 H 105 H Respiratory Rate Blood Pressure Blood Pressure [Right] O2 Sat by Pulse 97 97 97 Oximetry 12/20/19 12/20/19 12/20/19 04:42 04:47 04:52 Temperature Pulse Rate 105 H 100 H 105 H Respiratory Rate Blood Pressure Blood Pressure [Right] O2 Sat by Pulse 98 97 97 Oximetry 12/20/19 12/20/19 12/20/19 04:57 05:02 05:07 Temperature Pulse Rate 107 H 107 H 109 H Respiratory Rate Blood Pressure Blood Pressure [Right] O2 Sat by Pulse 97 97 96 Oximetry 12/20/19 12/20/19 12/20/19 05:12 05:17 05:22 Temperature Pulse Rate 110 H 106 H 106 H Respiratory Rate Blood Pressure Blood Pressure [Right] O2 Sat by Pulse 97 97 96 Oximetry 12/20/19 12/20/19 12/20/19 05:27 05:32 05:37 Temperature Pulse Rate 107 H 106 H 111 H Respiratory Rate Blood Pressure Blood Pressure [Right] O2 Sat by Pulse 97 96 95 Oximetry 12/20/19 12/20/19 12/20/19 05:42 05:47 05:52 Temperature Pulse Rate 106 H 108 H 112 H Respiratory Rate Blood Pressure Blood Pressure [Right] O2 Sat by Pulse 97 97 97 Oximetry 0412/20/19 12/20/19 05:57 06:02 07:12 Temperature Pulse Rate 105 H 109 H 115 H Respiratory Rate Blood Pressure 118/58 Blood Pressure [Right] O2 Sat by Pulse 98 97 98 Oximetry 12/20/19 12/20/19 12/20/19 07:17 07:20 07:22 Temperature 98.8 F Pulse Rate 119 H 115 H 116 H Respiratory 24 Rate Blood Pressure Blood Pressure 118/58 [Right] O2 Sat by Pulse 98 97 98 Oximetry 12/20/19 12/20/19 12/20/19 07:27 07:32 07:37 Temperature Pulse Rate 109 H 110 H 111 H Respiratory Rate Blood Pressure Blood Pressure [Right] O2 Sat by Pulse 100 100 100 Oximetry 12/20/19 12/20/19 12/20/19 07:42 07:47 07:52 Temperature Pulse Rate 111 H 109 H 112 H Respiratory Rate Blood Pressure Blood Pressure [Right] O2 Sat by Pulse 100 100 100 Oximetry 12/20/19 12/20/19 12/20/19 07:57 08:02 08:07 Temperature Pulse Rate 107 H 108 H 110 H Respiratory Rate Blood Pressure Blood Pressure [Right] O2 Sat by Pulse 100 100 99 Oximetry 12/20/19 12/20/19 12/20/19 08:12 08:17 08:22 Temperature Pulse Rate 114 H 111 H 113 H Respiratory Rate Blood Pressure Blood Pressure [Right] O2 Sat by Pulse 99 98 98 Oximetry 12/20/19 12/20/19 12/20/19 08:27 08:30 08:32 Temperature Pulse Rate 114 H 113 H Respiratory 22 Rate Blood Pressure Blood Pressure [Right] O2 Sat by Pulse 98 98 Oximetry 12/20/19 12/20/19 12/20/19 08:37 08:42 08:47 Temperature Pulse Rate 112 H 107 H 112 H Respiratory Rate Blood Pressure Blood Pressure [Right] O2 Sat by Pulse 98 97 98 Oximetry 12/20/19 12/20/19 12/20/19 08:52 08:57 09:02 Temperature Pulse Rate 114 H 116 H 112 H Respiratory Rate Blood Pressure Blood Pressure [Right] O2 Sat by Pulse 99 97 98 Oximetry 12/20/19 12/20/19 12/20/19 09:07 09:12 09:17 Temperature Pulse Rate 111 H 111 H 108 H Respiratory Rate Blood Pressure Blood Pressure [Right] O2 Sat by Pulse 98 98 98 Oximetry 12/20/19 12/20/19 12/20/19 09:22 09:27 09:32 Temperature Pulse Rate 113 H 110 H 111 H Respiratory Rate Blood Pressure Blood Pressure [Right] O2 Sat by Pulse 97 97 97 Oximetry 12/20/19 12/20/19 12/20/19 09:37 09:42 09:47 Temperature Pulse Rate 117 H 106 H 105 H Respiratory Rate Blood Pressure Blood Pressure [Right] O2 Sat by Pulse 98 97 97 Oximetry 12/20/19 12/20/19 12/20/19 09:52 09:57 10:02 Temperature Pulse Rate 104 H 101 H 101 H Respiratory Rate Blood Pressure Blood Pressure [Right] O2 Sat by Pulse 97 97 97 Oximetry 12/20/19 12/20/19 12/20/19 10:07 10:12 10:17 Temperature Pulse Rate 101 H 102 H 104 H Respiratory Rate Blood Pressure Blood Pressure [Right] O2 Sat by Pulse 97 97 98 Oximetry 12/20/19 12/20/19 12/20/19 10:22 10:27 10:32 Temperature 98.1 F Pulse Rate 103 H 107 H 103 H Respiratory 22 Rate Blood Pressure Blood Pressure 118/58 [Right] O2 Sat by Pulse 98 98 97 Oximetry 12/20/19 12/20/19 12/20/19 10:37 10:42 10:47 Temperature Pulse Rate 108 H 104 H 102 H Respiratory Rate Blood Pressure Blood Pressure [Right] O2 Sat by Pulse 99 98 99 Oximetry 12/20/19 12/20/19 12/20/19 10:52 10:57 11:02 Temperature Pulse Rate 97 H 97 H 97 H Respiratory Rate Blood Pressure Blood Pressure [Right] O2 Sat by Pulse 97 98 97 Oximetry 12/20/19 12/20/19 12/20/19 11:07 11:12 11:17 Temperature Pulse Rate 99 H 99 H 105 H Respiratory Rate Blood Pressure Blood Pressure [Right] O2 Sat by Pulse 98 97 98 Oximetry 12/20/19 12/20/19 12/20/19 11:22 11:27 11:32 Temperature Pulse Rate 102 H 98 H 102 H Respiratory Rate Blood Pressure 104/51 Blood Pressure [Right] O2 Sat by Pulse 98 96 98 Oximetry 12/20/19 12/20/19 12/20/19 11:37 11:42 11:47 Temperature Pulse Rate 99 H 104 H 109 H Respiratory Rate Blood Pressure Blood Pressure [Right] O2 Sat by Pulse 98 90 99 Oximetry 12/20/19 12/20/19 12/20/19 11:52 11:57 11:58 Temperature Pulse Rate 105 H 112 H 108 H Respiratory Rate Blood Pressure Blood Pressure [Right] O2 Sat by Pulse 100 98 89 Oximetry 12/20/19 12/20/19 12/20/19 12:02 12:07 12:12 Temperature Pulse Rate 105 H 107 H 110 H Respiratory Rate Blood Pressure Blood Pressure [Right] O2 Sat by Pulse 99 98 99 Oximetry 12/20/19 12/20/19 12/20/19 12:17 12:22 12:27 Temperature Pulse Rate 106 H 113 H 111 H Respiratory Rate Blood Pressure Blood Pressure [Right] O2 Sat by Pulse 99 99 99 Oximetry 12/20/19 12/20/19 12/20/19 12:32 12:37 12:42 Temperature Pulse Rate 107 H 110 H 107 H Respiratory Rate Blood Pressure Blood Pressure [Right] O2 Sat by Pulse 99 98 98 Oximetry 12/20/19 12/20/19 12/20/19 12:47 12:52 12:57 Temperature Pulse Rate 107 H 108 H 106 H Respiratory Rate Blood Pressure Blood Pressure [Right] O2 Sat by Pulse 98 98 98 Oximetry 12/20/19 12/20/19 12/20/19 13:02 13:07 13:12 Temperature Pulse Rate 109 H 112 H 109 H Respiratory Rate Blood Pressure Blood Pressure [Right] O2 Sat by Pulse 99 99 98 Oximetry 12/20/19 12/20/19 12/20/19 13:17 13:22 13:27 Temperature Pulse Rate 109 H 108 H 110 H Respiratory Rate Blood Pressure Blood Pressure [Right] O2 Sat by Pulse 99 99 98 Oximetry 12/20/19 12/20/19 12/20/19 13:30 13:32 13:37 Temperature Pulse Rate 110 H 114 H 114 H Respiratory Rate Blood Pressure Blood Pressure [Right] O2 Sat by Pulse 93 94 99 Oximetry - Exam Breasts: normal Cardiovascular: Regular rate, Normal S1 Lungs: Clear to auscultation, Normal air movement Abdomen: Present: normal appearance, soft, normal bowel sounds. Absent: distention, tenderness, guarding Vulva: both: normal Uterus: Present: normal, firm, fundal height below umbilicus. Absent: bogginess, tenderness FHR: category 1 Extremities: normal Deep Tendon Reflex Grade: Normal +2 - Labs Labs: Abnormal Labs 12/16/19 12/16/19 12/16/19 11:32 13:00 13:00 WBC 14.1 H RBC 3.14 L Hgb 9.7 L Hct 28.8 L Lymph % (Auto) [place] % (Auto) Lymph # [place] # Seg Neutrophils % Monocytes % (Manual) Seg Neutrophils # Monocytes # (Manual) D-Dimer Sodium 133 L Carbon Dioxide 16 L BUN 4 L Creatinine 0.4 L Glucose 113 H ALT < 5 L C-Reactive Protein Albumin 3.6 L Urine WBC (Auto) > 182.0 H U Epithel Cells (Auto) 29.0 H 12/16/19 12/16/19 12/17/19 13:00 13:00 20:12 WBC 18.5 H RBC 2.81 L Hgb 8.7 L Hct 25.7 L Lymph % (Auto) 5.8 L [place] % (Auto) 9.3 H Lymph # 1.1 L [place] # 1.7 H Seg Neutrophils % 84.8 H Monocytes % (Manual) Seg Neutrophils # 15.7 H Monocytes # (Manual) D-Dimer 881.69 H Sodium Carbon Dioxide BUN Creatinine Glucose ALT C-Reactive Protein 7.10 H Albumin Urine WBC (Auto) U Epithel Cells (Auto) 12/20/19 05:54 WBC RBC 2.76 L Hgb 8.6 L Hct 25.3 L Lymph % (Auto) [place] % (Auto) Lymph # [place] # Seg Neutrophils % Monocytes % (Manual) 12.0 H Seg Neutrophils # Monocytes # (Manual) 1.1 H D-Dimer Sodium Carbon Dioxide BUN Creatinine Glucose ALT C-Reactive Protein Albumin Urine WBC (Auto) U Epithel Cells (Auto) Laboratory Results - last 24 hr 12/20/19 05:54 WBC 8.9 RBC 2.76 L Hgb 8.6 L Hct 25.3 L MCV 92 MCH 31 MCHC 34 RDW 13.9 Plt Count 262 Add Manual Diff Complete Total Counted 100 Seg Neuts % (Manual) 70.0 Band Neutrophils % 2.0 Lymphocytes % (Manual) 16.0 Reactive Lymphs % (Man) 0 Monocytes % (Manual) 12.0 H Eosinophils % (Manual) 0 Basophils % (Manual) 0 Metamyelocytes % 0 Myelocytes % 0 Promyelocytes % 0 Blast Cells % 0 Nucleated RBC % Not Reportable Seg Neutrophils # Man 6.2 Band Neutrophils # 0.2 Lymphocytes # (Manual) 1.4 Abs React Lymphs (Man) 0.0 Monocytes # (Manual) 1.1 H Eosinophils # (Manual) 0.0 Basophils # (Manual) 0.0 Metamyelocytes # 0.0 Myelocytes # 0.0 Promyelocytes # 0.0 Blast Cells # 0.0 WBC Morphology Not Reportable Hypersegmented Neuts Not Reportable Hyposegmented Neuts Not Reportable Hypogranular Neuts Not Reportable Smudge Cells Not Reportable Toxic Granulation Not Reportable Toxic Vacuolation Not Reportable Dohle Bodies Not Reportable Pelger-Huet Anomaly Not Reportable Harshal Rods Not Reportable Platelet Estimate Consistent w auto Clumped Platelets Not Reportable Plt Clumps, EDTA Not Reportable Large Platelets Not Reportable Giant Platelets Not Reportable Platelet Satelliting Not Reportable Plt Morphology Comment Not Reportable RBC Morphology Not Reportable Dimorphic RBCs Not Reportable Polychromasia Not Reportable Hypochromasia Not Reportable Poikilocytosis Not Reportable Anisocytosis Not Reportable Microcytosis Not Reportable Macrocytosis Not Reportable Spherocytes Not Reportable Pappenheimer Bodies Not Reportable Sickle Cells Not Reportable Target Cells Not Reportable Tear Drop Cells Not Reportable Ovalocytes Rare Helmet Cells Not Reportable [place] Bodies Not Reportable [place] Rings Not Reportable [place] Cells Not Reportable Bite Cells Not Reportable Crenated Cell Not Reportable Elliptocytes Not Reportable Acanthocytes (Spur) Not Reportable Rouleaux Not Reportable Hemoglobin C Crystals Not Reportable Schistocytes Not Reportable [place] parasites Not Reportable [place] Bodies Not Reportable Hem Pathologist Commnt No
[2019-12-21 05:48] LABS: Hematocrit 24.3 % (30.3-42.9); Hemoglobin 8.4 gm/dl (10.1-14.3); Mean Corpuscular HGB Conc 34 % (30-34); Mean Corpuscular Volume 91 fl (79-97); Platelet Count 292 K/mm3 (140-440); Red Blood Count 2.67 M/mm3 (3.65-5.03); Red Cell Distribution Width 13.8 % (13.2-15.2)
[2019-12-21 06:38] LABS: Anisocytosis 1+; Band Neutrophils # (Manual) 0.1 K/mm3; Basophils % (Manual) 0 % (0.0-1.8); Total Cells Counted 100
[2019-12-21 06:39] LABS: Platelet Estimate Consistent w Auto
[2019-12-21 09:57] VITALS: BP 107/58
[2019-12-21] MEDS: AZITHROMYCIN 250 MG TAB PO SCH (10:16)
[2019-12-21] MEDS: cefTRIAXone/NS 2 GM/100 ML 2 GM/100 ML BAG IV SCH (10:16)
[2019-12-21] MEDS: PRENATAL VIT27-FE FUMARATE-FOLIC ACID VIT TAB PO SCH (10:16)
--- NOTE | 2019-12-21 10:39 | Progress Note ---
Assessment and Plan - Patient Problems (1) Pyelonephritis Current Visit: Yes Status: Acute Plan to address problem: Patient with significant clinical improvement Discharge patient home on p.o. antibiotics (2) Fever Current Visit: Yes Status: Acute (3) Pneumonia affecting Current Visit: Yes Status: Acute Subjective - Subjective Date of service: 12/21/19 Principal diagnosis: IUP at 28 wks, Suspected Pyelonephritis, PUI for Covid 19 Interval history: Patient reports feeling better. She has remained afebrile. Denies any shortness of breath. Patient reports: new complaints (per HPI ), movement normal, no loss of fluid, no vaginal bleeding Objective - Vital Signs Vital Signs: Vital Signs - 12hr 12/20/19 12/20/19 12/20/19 22:38 22:43 22:48 Temperature Pulse Rate 111 H 118 H 112 H Respiratory Rate Blood Pressure O2 Sat by Pulse 97 98 97 Oximetry 12/20/19 12/20/19 12/20/19 22:53 22:58 23:03 Temperature Pulse Rate 101 H 109 H 110 H Respiratory Rate Blood Pressure O2 Sat by Pulse 99 98 97 Oximetry 12/20/19 12/20/19 12/20/19 23:08 23:13 23:18 Temperature Pulse Rate 109 H 113 H 112 H Respiratory Rate Blood Pressure O2 Sat by Pulse 98 96 98 Oximetry 12/20/19 12/20/19 12/20/19 23:23 23:28 23:33 Temperature Pulse Rate 110 H 109 H 107 H Respiratory Rate Blood Pressure O2 Sat by Pulse 97 97 97 Oximetry 12/20/19 12/20/19 12/20/19 23:38 23:43 23:48 Temperature Pulse Rate 110 H 110 H 107 H Respiratory Rate Blood Pressure O2 Sat by Pulse 97 97 98 Oximetry 12/20/19 12/20/19 12/21/19 23:53 23:58 00:03 Temperature Pulse Rate 108 H 106 H 106 H Respiratory Rate Blood Pressure O2 Sat by Pulse 97 98 98 Oximetry 12/21/19 12/21/19 12/21/19 00:08 00:13 00:18 Temperature Pulse Rate 110 H 113 H 125 H Respiratory Rate Blood Pressure O2 Sat by Pulse 97 98 98 Oximetry 12/21/19 12/21/19 12/21/19 00:22 00:23 00:28 Temperature 98.4 F Pulse Rate 110 H 111 H 115 H Respiratory Rate Blood Pressure 120/58 O2 Sat by Pulse 99 99 Oximetry 12/21/19 12/21/19 12/21/19 00:31 00:33 00:38 Temperature Pulse Rate 109 H 112 H 110 H Respiratory Rate Blood Pressure O2 Sat by Pulse 91 100 99 Oximetry 12/21/19 12/21/19 12/21/19 00:43 00:48 00:53 Temperature Pulse Rate 107 H 109 H 109 H Respiratory Rate Blood Pressure O2 Sat by Pulse 99 99 99 Oximetry 12/21/19 12/21/19 12/21/19 01:30 01:33 01:35 Temperature Pulse Rate 114 H 55 L 105 H Respiratory Rate Blood Pressure O2 Sat by Pulse 100 89 98 Oximetry 12/21/19 12/21/19 12/21/19 01:40 01:45 01:50 Temperature Pulse Rate 118 H 108 H 111 H Respiratory Rate Blood Pressure O2 Sat by Pulse 99 98 98 Oximetry 12/21/19 12/21/19 12/21/19 01:55 02:00 02:05 Temperature Pulse Rate 111 H 108 H 108 H Respiratory Rate Blood Pressure O2 Sat by Pulse 99 98 98 Oximetry 12/21/19 12/21/19 12/21/19 02:10 02:15 02:20 Temperature Pulse Rate 109 H 107 H 103 H Respiratory Rate Blood Pressure O2 Sat by Pulse 98 98 98 Oximetry 12/21/19 12/21/19 12/21/19 02:25 02:30 02:35 Temperature Pulse Rate 104 H 104 H 104 H Respiratory Rate Blood Pressure O2 Sat by Pulse 98 98 98 Oximetry 12/21/19 12/21/19 12/21/19 02:40 02:45 02:50 Temperature Pulse Rate 104 H 104 H 104 H Respiratory Rate Blood Pressure O2 Sat by Pulse 98 98 98 Oximetry 12/21/19 12/21/19 12/21/19 02:55 03:00 03:05 Temperature Pulse Rate 108 H 107 H 110 H Respiratory Rate Blood Pressure O2 Sat by Pulse 97 98 98 Oximetry 12/21/19 12/21/19 12/21/19 03:10 03:15 03:20 Temperature Pulse Rate 105 H 100 H 102 H Respiratory Rate Blood Pressure O2 Sat by Pulse 97 97 98 Oximetry 12/21/19 12/21/19 12/21/19 03:25 03:30 03:35 Temperature Pulse Rate 103 H 101 H 103 H Respiratory Rate Blood Pressure O2 Sat by Pulse 98 98 98 Oximetry 12/21/19 12/21/19 12/21/19 03:40 03:45 03:50 Temperature Pulse Rate 102 H 102 H 99 H Respiratory Rate Blood Pressure O2 Sat by Pulse 97 98 98 Oximetry 12/21/19 12/21/19 12/21/19 03:55 04:00 04:03 Temperature Pulse Rate 98 H 99 H 108 H Respiratory Rate Blood Pressure 135/62 O2 Sat by Pulse 98 98 Oximetry 12/21/19 12/21/19 12/21/19 04:05 04:10 04:15 Temperature 97.9 F Pulse Rate 100 H 105 H 101 H Respiratory Rate Blood Pressure O2 Sat by Pulse 99 98 98 Oximetry 12/21/19 12/21/19 12/21/19 04:20 04:25 04:30 Temperature Pulse Rate 99 H 100 H 95 H Respiratory Rate Blood Pressure O2 Sat by Pulse 98 98 98 Oximetry 12/21/19 12/21/19 12/21/19 04:35 04:40 04:45 Temperature Pulse Rate 97 H 98 H 99 H Respiratory Rate Blood Pressure O2 Sat by Pulse 97 97 98 Oximetry 12/21/19 12/21/19 12/21/19 04:50 04:55 05:00 Temperature Pulse Rate 97 H 96 H 95 H Respiratory Rate Blood Pressure O2 Sat by Pulse 98 98 98 Oximetry 12/21/19 12/21/19 12/21/19 05:05 05:10 05:15 Temperature Pulse Rate 97 H 98 H 100 H Respiratory Rate Blood Pressure O2 Sat by Pulse 98 98 98 Oximetry 12/21/19 12/21/19 12/21/19 05:20 05:25 05:30 Temperature Pulse Rate 98 H 99 H 94 H Respiratory Rate Blood Pressure O2 Sat by Pulse 98 98 98 Oximetry 12/21/19 12/21/19 12/21/19 05:35 05:40 05:45 Temperature Pulse Rate 97 H 95 H 97 H Respiratory Rate Blood Pressure O2 Sat by Pulse 99 99 98 Oximetry 12/21/19 12/21/19 12/21/19 05:50 05:55 06:00 Temperature Pulse Rate 96 H 92 H 94 H Respiratory Rate Blood Pressure O2 Sat by Pulse 98 98 98 Oximetry 0412/21/19 12/21/19 06:05 06:10 06:15 Temperature Pulse Rate 95 H 96 H 92 H Respiratory Rate Blood Pressure O2 Sat by Pulse 98 98 99 Oximetry 12/21/19 12/21/19 12/21/19 06:20 06:25 06:30 Temperature Pulse Rate 90 97 H 92 H Respiratory Rate Blood Pressure O2 Sat by Pulse 99 98 98 Oximetry 12/21/19 12/21/19 12/21/19 06:35 06:40 06:45 Temperature Pulse Rate 98 H 96 H 97 H Respiratory Rate Blood Pressure O2 Sat by Pulse 99 99 98 Oximetry 12/21/19 12/21/19 12/21/19 06:50 06:55 07:00 Temperature Pulse Rate 99 H 97 H 98 H Respiratory Rate Blood Pressure O2 Sat by Pulse 99 99 99 Oximetry 12/21/19 12/21/19 12/21/19 07:05 07:10 07:15 Temperature 98.1 F Pulse Rate 96 H 99 H 99 H Respiratory 18 Rate Blood Pressure O2 Sat by Pulse 98 98 98 Oximetry 12/21/19 12/21/19 12/21/19 07:20 07:25 07:30 Temperature Pulse Rate 98 H 98 H 106 H Respiratory Rate Blood Pressure O2 Sat by Pulse 98 98 98 Oximetry 12/21/19 12/21/19 12/21/19 07:35 07:40 09:56 Temperature Pulse Rate 100 H 93 H 108 H Respiratory Rate Blood Pressure 107/58 O2 Sat by Pulse 99 99 99 Oximetry 12/21/19 12/21/19 12/21/19 10:00 10:01 10:06 Temperature 98.4 F Pulse Rate 108 H 112 H Respiratory 16 Rate Blood Pressure O2 Sat by Pulse 99 99 Oximetry 12/21/19 12/21/19 12/21/19 10:11 10:16 10:21 Temperature Pulse Rate 107 H 108 H 108 H Respiratory Rate Blood Pressure O2 Sat by Pulse 99 98 99 Oximetry 12/21/19 12/21/19 10:26 10:31 Temperature Pulse Rate 110 H 114 H Respiratory Rate Blood Pressure O2 Sat by Pulse 99 99 Oximetry - Labs Labs: Abnormal Labs 12/16/19 12/16/19 12/16/19 11:32 13:00 13:00 WBC 14.1 H RBC 3.14 L Hgb 9.7 L Hct 28.8 L Lymph % (Auto) Rhea % (Auto) Lymph # Rhea # Seg Neutrophils % Monocytes % (Manual) Seg Neutrophils # Monocytes # (Manual) D-Dimer Sodium 133 L Carbon Dioxide 16 L BUN 4 L Creatinine 0.4 L Glucose 113 H ALT < 5 L C-Reactive Protein Albumin 3.6 L Urine WBC (Auto) > 182.0 H U Epithel Cells (Auto) 29.0 H 12/16/19 12/16/19 12/17/19 13:00 13:00 20:12 WBC 18.5 H RBC 2.81 L Hgb 8.7 L Hct 25.7 L Lymph % (Auto) 5.8 L Rhea % (Auto) 9.3 H Lymph # 1.1 L Rhea # 1.7 H Seg Neutrophils % 84.8 H Monocytes % (Manual) Seg Neutrophils # 15.7 H Monocytes # (Manual) D-Dimer 881.69 H Sodium Carbon Dioxide BUN Creatinine Glucose ALT C-Reactive Protein 7.10 H Albumin Urine WBC (Auto) U Epithel Cells (Auto) 12/20/19 12/21/19 05:54 05:32 WBC RBC 2.76 L 2.67 L Hgb 8.6 L 8.4 L Hct 25.3 L 24.3 L Lymph % (Auto) Rhea % (Auto) Lymph # Rhea # Seg Neutrophils % Monocytes % (Manual) 12.0 H 8.0 H Seg Neutrophils # Monocytes # (Manual) 1.1 H D-Dimer Sodium Carbon Dioxide BUN Creatinine Glucose ALT C-Reactive Protein Albumin Urine WBC (Auto) U Epithel Cells (Auto) Laboratory Results - last 24 hr 12/21/19 05:32 WBC 7.4 RBC 2.67 L Hgb 8.4 L Hct 24.3 L MCV 91 MCH 31 MCHC 34 RDW 13.8 Plt Count 292 Add Manual Diff Complete Total Counted 100 Seg Neuts % (Manual) 68.0 Band Neutrophils % 1.0 Lymphocytes % (Manual) 20.0 Reactive Lymphs % (Man) 0 Monocytes % (Manual) 8.0 H Eosinophils % (Manual) 3.0 Basophils % (Manual) 0 Metamyelocytes % 0 Myelocytes % 0 Promyelocytes % 0 Blast Cells % 0 Nucleated RBC % Not Reportable Seg Neutrophils # Man 5.0 Band Neutrophils # 0.1 Lymphocytes # (Manual) 1.5 Abs React Lymphs (Man) 0.0 Monocytes # (Manual) 0.6 Eosinophils # (Manual) 0.2 Basophils # (Manual) 0.0 Metamyelocytes # 0.0 Myelocytes # 0.0 Promyelocytes # 0.0 Blast Cells # 0.0 WBC Morphology Not Reportable Hypersegmented Neuts Not Reportable Hyposegmented Neuts Not Reportable Hypogranular Neuts Not Reportable Smudge Cells Not Reportable Toxic Granulation Not Reportable Toxic Vacuolation Not Reportable Dohle Bodies Not Reportable Pelger-Huet Anomaly Not Reportable Harshal Rods Not Reportable Platelet Estimate Consistent w auto Clumped Platelets Not Reportable Plt Clumps, EDTA Not Reportable Large Platelets Not Reportable Giant Platelets Not Reportable Platelet Satelliting Not Reportable Plt Morphology Comment Not Reportable RBC Morphology Not Reportable Dimorphic RBCs Not Reportable Polychromasia Not Reportable Hypochromasia Not Reportable Poikilocytosis Not Reportable Anisocytosis 1+ Microcytosis Not Reportable Macrocytosis Not Reportable Spherocytes Not Reportable Pappenheimer Bodies Not Reportable Sickle Cells Not Reportable Target Cells Not Reportable Tear Drop Cells Not Reportable Ovalocytes Not Reportable Helmet Cells Not Reportable [place] Bodies Not Reportable [place] Rings Not Reportable Sylvia Cells Not Reportable Bite Cells Not Reportable Crenated Cell Not Reportable Elliptocytes Not Reportable Acanthocytes (Spur) Not Reportable Rouleaux Not Reportable Hemoglobin C Crystals Not Reportable Schistocytes Not Reportable Malaria parasites Not Reportable Blake Bodies Not Reportable Hem Pathologist Commnt No
--- NOTE | 2019-12-21 10:41 | Discharge Summary ---
Providers - Providers Date of Admission: 12/16/19 10:30 Date of discharge: 12/21/19 Attending physician: AMOR CHILD 12/17/19 21:38 Consult to Physician [CONS] Routine Comment: Consulting Provider: RIANNA GAONA Physician Instructions: Reason For Exam: Fever, Chest Tightness, Suspected PUI 12/20/19 13:10 Consult to Physician [CONS] Routine Comment: Consulting Provider: JOSE GOMEZ Physician Instructions: PLEASE SEE PATIENT 2005 L AND D Reason For Exam: IDP RT PTL RT PNEUMONIA Primary care physician: AMOR CHILD Hospitalization Reason for admission: other (Febrile morbidity; pyelonephritis; pneumonia) Discharge diagnosis: other (Pyelonephritis; pneumonia) Hospital course: The patient was admitted through labor and delivery triage with complaints of shortness of breath and fever. The patient was tested for COVID-19 and was found to be negative. Her admission diagnoses also included pyelonephritis with pneumonia. The patient received IV antibiotics and was evaluated by infectious disease department. She had improvement in her clinical symptoms and was discharged home on p.o. antibiotics. Condition at discharge: Good Disposition: DC-01 TO HOME OR SELFCARE - Discharge Diagnoses (1) Pyelonephritis Status: Acute (2) Fever Status: Acute (3) Pneumonia affecting Status: Acute Plan - Discharge Medications Prescriptions: cephALEXin [Keflex] 500 mg PO Q12HR #20 cap - Provider Discharge Summary Activity: no sex for 6 weeks, no heavy lifting 4 weeks, no strenuous exercise Diet: routine Instructions: routine Additional instructions: [] Smoking cessation referral if applicable(refer to patient education folder for contact #) [] Refer to [facility] Booklet Call your doctor immediately for: * Fever > 100.5 * Heavy vaginal bleeding ( >1 pad per hour) * Severe persistent headache * Shortness of breath * Reddened, hot, painful area to leg or breast * Schedule follow-up in 1 week - Follow up plan Follow up: AMOR CHILD MD [Primary Care Provider] - 7 Days
== END 2019-12-21 11:30 | disposition home or self-care (01) | DRG 781 ==
LOC: LD 10:29 → TRG 10:29 → LD 10:30 → TRG 10:31 → LD 12-17 21:59
PROVIDERS: ADMIT Obstetrics & Gynecology; ATTEND Obstetrics & Gynecology
DX: O23.02 Infections of kidney in pregnancy, second trimester (principal); O99.512 Diseases of the respiratory system complicating pregnancy, second trimester; B96.20 Unspecified Escherichia coli [E. coli] as the cause of diseases classified elsewhere; J45.909 Unspecified asthma, uncomplicated; Z20.818 Contact with and (suspected) exposure to other bacterial communicable diseases; J18.9 Pneumonia, unspecified organism
CPT/HCPCS: 36415; 71045; 76815; 76819; 80053; 81001; 82728; 83615; 84145; 84443; 85007; 85025; 85027; 85379; 86140; 87040; 87076; 87086; 87186; 87400; 93005; 93010; 94640; G0378; 87502; J0696; J2405; J7120

== ENCOUNTER 2020-03-05 02:01 | Inpatient (IN) | payer OTHER ==
[2020-03-05] MEDS ORDERED: LACTATED RINGERS 2,000 ML ONE (02:33)
[2020-03-05] MEDS ORDERED: ONDANSETRON 4 MG/2 ML INJ IV PRN ×2 (02:34→11:21)
[2020-03-05] MEDS ORDERED: MINERAL OIL 30 ML ORAL LIQD PO PRN (02:34)
[2020-03-05] MEDS ORDERED: TERBUTALINE 1 MG/1 ML INJ IVP PRN (02:34)
[2020-03-05] MEDS ORDERED: TERBUTALINE 1 MG/1 ML INJ SUB-Q PRN (02:34)
[2020-03-05] MEDS ORDERED: PROMETHAZINE 25 MG TAB PO PRN ×2 (02:34→11:21)
[2020-03-05] MEDS ORDERED: BUTORPHANOL 2 MG/1 ML INJ IV PRN ×2 (02:34)
[2020-03-05] MEDS ORDERED: fentaNYL 100 MCG/2 ML INJ IV PRN (02:34)
[2020-03-05] MEDS ORDERED: LIDOCAINE (2%) 20 MG/1 ML VIAL 20 ML MDV INFILTRATI ONE ×3 (02:34→08:45)
[2020-03-05] MEDS ORDERED: ePHEDrine SULFATE 50 MG/1 ML INJ IV PRN (02:34)
[2020-03-05] MEDS ORDERED: NALOXONE 0.4 MG/1 ML INJ IV PRN (02:34)
[2020-03-05] MEDS ORDERED: OXYTOCIN DRIP 30 UNITS/500 ML BAG IV SCH (03:00)
[2020-03-05] MEDS ORDERED: LACTATED RINGERS 1,000 ML IV SCH (03:00)
[2020-03-05] MEDS ORDERED: DEXMEDETOMIDINE 200 MCG/2 ML VIAL IV ONE (03:54)
[2020-03-05] MEDS ORDERED: diphenhydrAMINE 50 MG/ML VIAL IV PRN (03:55)
[2020-03-05] MEDS ORDERED: NalbUPHINE 10 MG/1 ML INJ IV PRN (03:55)
[2020-03-05] MEDS ORDERED: NALOXONE 2 MG/2 ML INJ IV PRN (03:55)
[2020-03-05] MEDS ORDERED: fentaNYL-BUPIV 2 MCG/ML-0.125% 200 MCG/100 ML BAG EPIDURAL SCH (04:00)
--- NOTE | 2020-03-05 04:03 | Anesthesia Consultation ---
Anesthesia Consult and Med Hx Date of service: 03/05/20 - Airway Anesthetic Teeth Evaluation: Good ROM Head & Neck: Adequate Mental/Hyoid Distance: Adequate Mallampati Class: Class I Intubation Access Assessment: Good - Pulmonary Exam CTA: Yes - Cardiac Exam Cardiac Exam: RRR - Pre-Operative Health Status ASA Pre-Surgery Classification: ASA2 Proposed Anesthetic Plan: Epidural - Pulmonary Hx Smoking: No Hx Asthma: Yes (LAST ATTACK 2009) COPD: No Hx Pneumonia: Yes (CURRENT) Hx Sleep Apnea: No - Cardiovascular System Hx Hypertension: No - Central Nervous System Hx Seizures: No Hx Psychiatric Problems: No - Gastrointestinal Hx Gastroesophageal Reflux Disease: No - Endocrine Hx Renal Disease: Yes (Pyelonephritis) Hx End Stage Renal Disease: No Hx Hypothyroidism: No Hx Hyperthyroidism: No - Hematic Hx Anemia: No Hx Sickle Cell Disease: No - Other Systems Hx Alcohol Use: No
[2020-03-05 04:08] LABS: Hematocrit 34.3 % (30.3-42.9); Hemoglobin 11.2 gm/dl (10.1-14.3); Mean Corpuscular HGB Conc 33 % (30-34); Mean Corpuscular Volume 88 fl (79-97); Platelet Count 307 K/mm3 (140-440); Red Blood Count 3.92 M/mm3 (3.65-5.03); Red Cell Distribution Width 14.6 % (13.2-15.2)
--- NOTE | 2020-03-05 04:44 | Progress Note ---
Labor Epidural - Labor Epidural Start Time: 04:29 Stop Time: 04:35 Performed by:: CHETAN JORDAN Procedure: Patient is requesting a laboring epidural for laboring pain. Patient IDed, H&P reviewed, all questions and concerns were answered, and consent was signed. Timeout was performed at bedside. Patient in sitting position. Sterile prep and drape was performed. 3ml of 1% lidocaine skin wheal at L[3]- L [4]. 18- gauge Touhy epidural needle was advanced to loss of resistance with air technique. Negative CSF negative blood. Epidural catheter advanced to [10] centimeters. [-] Aspiration [-] test dose. Sterile dressing applied. Patient tolerated procedure.
[2020-03-05] MEDS: OXYTOCIN 20 UNIT/1000ML DRIP 20 UNITS/1,000 ML BAG IV SCH ×2 (08:33→09:45)
[2020-03-05] MEDS ORDERED: METHYLERGONOVINE MALEATE 0.2 MG/ML VIAL IM ONE ×2 (08:36→08:44)
[2020-03-05] MEDS ORDERED: miSOPROStol 200 MCG TAB PR ONE (08:47)
--- NOTE | 2020-03-05 09:01 | History and Physical Report ---
History of Present Illness Date of examination: 03/05/20 Date of admission: 03/05/20 02:34 Chief complaint: contractions History of present illness: Pt is a 24 year old primigravida JAZ 03/07/20 at 39w5d who presents with contractions and advanced cervical dilation. She experienced SROM at 0200 am as well. She has had care at [facility] since 12 wks complicated by pyelonephritis and pneumonia in December 2019. She is GBS negative. Past History Past Medical History: no pertinent history Past Surgical History: no surgical history Family/Genetic History: none Social history: no significant social history - Obstetrical History Expected Date of Delivery: 03/07/20 Actual Gestation: 39 Week(s) 5 Day(s) : 1 Medications and Allergies Allergies Allergy/AdvReac Type Severity Reaction Status Date / Time acetaminophen [From Percocet] Allergy Intermediate Swelling Verified 04/14/18 23:21 oxycodone [From Percocet] Allergy Intermediate Swelling Verified 04/14/18 23:21 Home Medications Medication Instructions Recorded Confirmed Last Taken Type Formula-Dha Softgel 1 tab PO DAILY 12/18/19 12/18/19 12/17/19 History cephALEXin [Keflex] 500 mg PO Q12HR #20 cap 12/21/19 Unknown Rx Active Meds: Active Medications Butorphanol Tartrate (Stadol) 1 mg IV Q2H PRN PRN Reason: Pain, Moderate(4-6) LABOR PAIN Butorphanol Tartrate (Stadol) 2 mg IV Q2H PRN PRN Reason: Pain , Severe (7-10) Diphenhydramine HCl (Benadryl) 12.5 mg IV Q2H PRN PRN Reason: Itching Ephedrine Sulfate (Ephedrine Sulfate) 10 mg IV Q2M PRN PRN Reason: Hypotension Fentanyl (Sublimaze) 100 mcg IV Q2H PRN PRN Reason: Pain,Severe (7-10) LABOR PAIN Last Admin: 03/05/20 03:55 Dose: 100 mcg Documented by: Oxytocin/Sodium Chloride (Pitocin/Ns 20 Unit/1000ml Drip) 20 units in 1,000 mls @ 125 mls/hr IV DIRECT ANGIE Oxytocin/Sodium Chloride (Pitocin/Ns 30 Unit/500ml) 30 units in 500 mls @ 2 mls/hr IV TITR ANGIE; Protocol Last Admin: 03/05/20 07:51 Dose: 2 ml/hr, 2 mls/hr Documented by: Lactated Ringer's (Lactated Ringers) 1,000 mls @ 125 mls/hr IV DIRECT ANGIE Fentanyl/Bupivacaine/Sodium Chlor (Fentanyl-Bupiv 2 Mcg/Ml-0.125%) 200 mcg in 100 mls @ 12 mls/hr EPIDURAL TITR ANGIE; Protocol Last Admin: 03/05/20 06:13 Dose: 12 mls/hr Documented by: Mineral Oil (Mineral Oil) 30 ml PO QHS PRN PRN Reason: Constipation Nalbuphine HCl (Nalbuphine) 2.5 mg IV Q2H PRN PRN Reason: Itching Naloxone HCl (Naloxone) 0.1 mg IV Q2MIN PRN PRN Reason: Res Rate </= 8 or 02 SAT < 92% Naloxone HCl (Naloxone) 0.2 mg IV Q5M PRN PRN Reason: Respiratory sedation Ondansetron HCl (Zofran) 4 mg IV Q8H PRN PRN Reason: Nausea And Vomiting Promethazine HCl (Phenergan) 25 mg PO Q6H PRN PRN Reason: Nausea And Vomiting Terbutaline Sulfate (Brethine) 0.25 mg SUB-Q ONCE PRN PRN Reason: Hyperstimulation/Hypertonicity Terbutaline Sulfate (Brethine) 0.25 mg IVP ONCE PRN PRN Reason: Hyperstimulation/Hypertonicity Review of Systems All systems: negative - Vital Signs Vital signs: Vital Signs Temp Pulse Resp BP Pulse Ox 98.3 F 103 H 18 139/73 98 03/05/20 02:05 03/05/20 02:05 03/05/20 02:05 03/05/20 02:05 03/05/20 02:05 Temp Pulse Resp BP Pulse Ox 98.3 F 113 H 18 120/58 99 03/05/20 02:05 03/05/20 08:55 03/05/20 02:05 03/05/20 08:48 03/05/20 08:55 - Physical Exam Breasts: Positive: deferred Abdomen: Positive: soft (gravid ) Uterus: Positive: enlarged (gravid ) Extremities: Positive: normal - Obstetrical FHR: auscultation normal Cervical Dilatation: 10 Cervical Effacement Percentage: 100 station: 0 Uterine Contraction Pattern: Regular Uterine Tone Measurement Phase: Resting Uterine Contraction Intensity: Moderate Results Result Diagrams: 03/05/20 02:45 All other labs normal. Assessment and Plan A: IUP at 39w5d Second Stage Labor SROM GBS Negative P: Admit to labor and delivery Routine intrapartum care Anticipate vaginal delivery
--- NOTE | 2020-03-05 09:03 | Procedure Note ---
OB Delivery Note - Delivery Date of Delivery: 03/05/20 Surgeon: AMOR CHILD Estimated blood loss: 500cc - Vaginal Delivery presentation: vertex Delivery position: OA Intrapartum events: PROM->1hr before delivery, decreased FHT variability, mult.variable deceleratio, uterine atony (s/p misoprostol 800 mcg and methergine 0.2 mg IM ) Delivery induction: none Delivery augmentation: pitocin Delivery monitor: external FHT, external uterine Route of delivery: Delivery placenta: spontaneous Delivery cord: nuchal cord (loose, reduced manually ), 3 umbilical vessels Episiotomy: none Delivery laceration: 2nd degree Delivery repair: vicryl Anesthesia: local, epidural - Infant A at 1 minute: 8 at 5 minutes: 9 Gender: Male (3049g (6lb 12oz) @ 0829 am)
[2020-03-05] MEDS ORDERED: MAGNESIUM HYDROXIDE (MOM) ORAL LIQD UDC PO PRN (11:21)
[2020-03-05] MEDS ORDERED: PROMETHAZINE 25 MG RECT SUPP PR PRN (11:21)
[2020-03-05] MEDS ORDERED: LANOLIN/ZINC/DIMETHICONE (LANSINOH) 7 GM TP PRN ×2 (11:21)
[2020-03-05] MEDS ORDERED: BENZOCAINE/MENTHOL 20/0.5% TOP SPRAY 56 GM TP PRN (11:21)
[2020-03-05] MEDS ORDERED: ACETAMINOPHEN 325 MG TAB PO PRN (11:21)
[2020-03-05] MEDS ORDERED: OXYTOCIN 20 UNIT/1000ML DRIP 20 UNITS/1,000 ML BAG IV SCH (11:21)
[2020-03-05] MEDS ORDERED: diphenhydrAMINE 25 MG CAP PO PRN (11:21)
[2020-03-05] MEDS ORDERED: WITCH HAZEL/ GLYCERIN PAD TP PRN (11:21)
--- NOTE | 2020-03-05 11:27 | Post Anesthesia Evaluation ---
- Post Anesthesia Evaluation Patient Participated: Yes Airway Patent: Yes Stable Respiratory Function: Yes Nausea/Vomiting: No Temp > 96.8F: Yes Pain Manageable: Yes Adequeate Hydration: Yes Anesthesia Complications: No Block Receding Appropriately: Yes Patient on Ventilator: No
[2020-03-05] MEDS: IBUPROFEN 600 MG TAB PO SCH (12:49)
[2020-03-05] MEDS: FERROUS SULFATE 325 MG TAB PO SCH (12:55)
[2020-03-05 19:43] LABS: Hematocrit 29.8 % (30.3-42.9); Hemoglobin 10.1 gm/dl (10.1-14.3)
[2020-03-06] MEDS: FERROUS SULFATE 325 MG TAB PO SCH ×2 (00:19→09:12)
[2020-03-06] MEDS: IBUPROFEN 600 MG TAB PO SCH ×2 (00:19→05:29)
[2020-03-06] MEDS ORDERED: DIPHtheria,PERTUSSIS(ACELL),TETANUS VACCINE/PF 0.5 ML VIAL IM ONE (06:00)
--- NOTE | 2020-03-06 07:35 | Progress Note ---
Assessment and Plan A: PPD#1 s/p at term Pt requests discharge today if possible P: Routine care Discharge home Subjective - Subjective Date of service: 03/06/20 Principal diagnosis: s/p at term Interval history: Pt is a 24 year old primigravida JAZ 03/07/20 at 39w5d who presents with contractions and advanced cervical dilation. She experienced SROM at 0200 am as well. She has had care at [facility] since 12 wks complicated by pyelonephritis and pneumonia in December 2019. She is GBS negative. Patient reports: appetite normal, dizzy ambulation, pain well controlled, ambulating normally [place]: doing well Objective - Vital Signs Latest vital signs: Vital Signs Temp Pulse Resp BP BP Pulse Ox 03/06/20 00:36 98.0 F 85 18 110/69 96 03/05/20 21:13 98.1 F 18 114/63 03/05/20 17:01 98.0 F 20 110/72 03/05/20 13:05 100 F H 03/05/20 10:56 100 F H 94 H 19 128/58 96 03/05/20 10:00 86 99 03/05/20 09:55 89 99 03/05/20 09:50 99 H 99 03/05/20 09:45 100 H 97 03/05/20 09:40 110 H 100 03/05/20 09:35 102 H 97 03/05/20 09:30 105 H 98 03/05/20 09:25 122 H 96 03/05/20 09:20 125 H 98 03/05/20 09:15 123 H 98 03/05/20 09:10 106 H 119/60 100 03/05/20 09:05 89 100 03/05/20 09:00 98.5 F 112 H 98 03/05/20 08:55 113 H 99 03/05/20 08:50 106 H 99 03/05/20 08:48 112 H 120/58 03/05/20 08:45 112 H 99 03/05/20 08:40 117 H 100 03/05/20 08:35 123 H 99 03/05/20 08:30 159 H 99 03/05/20 08:26 170 H 92 03/05/20 08:25 138 H 99 06/29/20 08:20 136 H 100 03/05/20 08:15 144 H 100 03/05/20 08:10 98 H 100 03/05/20 08:05 145 H 98 03/05/20 08:00 124 H 100 03/05/20 07:58 107 H 93 03/05/20 07:55 89 99 03/05/20 07:51 97 H 89 03/05/20 07:50 96 H 100 03/05/20 07:49 95 H 133/61 03/05/20 07:46 91 H 93 03/05/20 07:45 91 H 100 03/05/20 07:40 114 H 97 03/05/20 07:35 127 H 96 Intake and Output 03/05/20 03/06/20 03/06/20 22:59 06:59 14:59 Intake Total 480 360 Output Total 400 Balance 80 360 Intake: Oral 480 Intake, Free Water 360 Output: Urine 400 Void 400 Other: Total, Intake Amount 240 Total, Output Amount 400 Voiding Method Toilet Toilet # Voids Void 3 1 - Exam Breasts: Present: deferred Abdomen: Present: soft Uterus: Present: fundal height at umbilicus Extremities: Present: normal - Labs Labs: Abnormal lab results 03/05/20 Range/Units 19:12 Hct 29.8 L (30.3-42.9) %
--- NOTE | 2020-03-06 07:35 | Discharge Summary ---
Providers - Providers Date of Admission: 03/05/20 02:34 Date of discharge: 03/06/20 Attending physician: JUAN FRANCISCO GORDON Primary care physician: JUAN FRANCISCO GORDON Hospitalization Reason for admission: active labor Delivery: Procedure details: Please see delivery note Episiotomy: none Laceration: 2nd degree Other procedures: none complications: none Discharge diagnosis: IUP at term delivered [place] baby: male Hospital course: Pt was admitted in active labor and went on to have a spontaneous vaginal delivery which she tolerated well. She met discharge criteria on PPD#1. She will follow up in 2 weeks for a laceration check. Condition at discharge: Stable Disposition: DC- TO HOME OR SELFCARE - Discharge Diagnoses (1) Term of male Status: Acute (2) Anemia Status: Acute Qualifiers: Anemia type: unspecified type Qualified Code(s): D64.9 - Anemia, unspecified Plan - Discharge Medications Prescriptions: Ferrous Sulfate [Feosol 325 MG tab] 325 mg PO BID #60 tablet Ibuprofen [Motrin] 800 mg PO Q8HR PRN #30 tablet PRN Reason: Pain, Moderate (4-6) - Provider Discharge Summary Activity: routine, no sex for 6 weeks, no heavy lifting 4 weeks, no strenuous exercise Diet: routine Instructions: routine Additional instructions: [] Smoking cessation referral if applicable(refer to patient education folder for contact #) [] Refer to [facility]'s [facility] Booklet Call your doctor immediately for: * Fever > 100.5 * Heavy vaginal bleeding ( >1 pad per hour) * Severe persistent headache * Shortness of breath * Reddened, hot, painful area to leg or breast * Drainage or odor from incision. * Keep incision clean and dry at all times and follow doctor's instructions regarding bathing/showering - Follow up plan Follow up: TORI REYNA CNM [Advanced Practice Nurse] - 7 Days (Please schedule a laceration check in 2 wks. Please schedule your son's circumcision check before he is one month old. )
[2020-03-06] MEDS ORDERED: MEASLES, MUMPS & RUBELLA 12,500 UNIT/0.5 ML VACCINE SUB-Q ONE (10:00)
[2020-03-06 12:54] VITALS: BP 129/56
== END 2020-03-06 12:15 | disposition home or self-care (01) | DRG 775 ==
LOC: TRG 02:01 → APU 02:03 → TRG 02:34 → LD 02:34 → OB 11:01
PROVIDERS: ADMIT Obstetrics & Gynecology; ATTEND Obstetrics & Gynecology
PROC: 10E0XZZ Delivery of Products of Conception, External Approach (ICD-10-PCS; principal; 2020-03-05)
PROC: 3E0R3BZ Introduction of Anesthetic Agent into Spinal Canal, Percutaneous Approach (ICD-10-PCS; 2020-03-05)
PROC: 00HU33Z Insertion of Infusion Device into Spinal Canal, Percutaneous Approach (ICD-10-PCS; 2020-03-05)
PROC: 3E0234Z Introduction of Serum, Toxoid and Vaccine into Muscle, Percutaneous Approach (ICD-10-PCS; 2020-03-06)
PROC: 3E0134Z Introduction of Serum, Toxoid and Vaccine into Subcutaneous Tissue, Percutaneous Approach (ICD-10-PCS; 2020-03-06)
DX: O76 Abnormality in fetal heart rate and rhythm complicating labor and delivery (principal); O42.02 Full-term premature rupture of membranes, onset of labor within 24 hours of rupture; J45.909 Unspecified asthma, uncomplicated; O62.2 Other uterine inertia; O99.52 Diseases of the respiratory system complicating childbirth; O69.81X0 Labor and delivery complicated by cord around neck, without compression, not applicable or unspecified; O70.1 Second degree perineal laceration during delivery; O90.81 Anemia of the puerperium; D64.9 Anemia, unspecified; Z3A.39 39 weeks gestation of pregnancy; Z37.0 Single live birth; Z23 Encounter for immunization; Z87.01 Personal history of pneumonia (recurrent)
CPT/HCPCS: 36415; 85014; 85018; 85027; 86850; 86900; 86901; 90471; 90715; G0378; J2210; J2405; J2590; J3010; J3490; J7120